=== PATIENT | female | born 1940 | race Caucasian/White ===

== ENCOUNTER 2020-04-22 12:18 | Observation (INO) | payer OTHER, SELFPAY ==
[2020-04-22] VITALS (10 sets, daily range): BP systolic 112–148; BP diastolic 55–95; PULSE 52–64; RESP 14–18; TEMP 35.9–37; O2SAT 95–100; BMI 20.9
--- NOTE | ~2020-04-22 | XR_ITS ---
XR chest 1V portable DATE: 04/23/2020 05:50 INDICATION: Preoperative evaluation. Hypertension. Former smoker. TECHNIQUE: Portable AP chest on 04/23/2020 at 0507 hours COMPARISON: 12/18/2018 PA and lateral chest FINDINGS: Status post sternotomy. Normal heart size. There is aortic calcification and mild tortuosit y. No hilar or mediastinal enlargement. No pulmonary infiltrate or consolidation, pleural effusion or pulmonary vascular congestion or pneumo thorax. Diffuse osteopenia. Degenerative changes of the thoracic and lumbar spine. IMPRESSION: Status post sternotomy No active cardiopulmonary disease Diffuse osteopenia. Reviewed, dictated and finalized at location A. ICAL SECRETARY
--- NOTE | ~2020-04-22 | CT_ITS ---
EXAMINATION: CT brain wo con DATE: 04/22/2020 12:58 INDICATION: Fall. Right frontal head injury TECHNIQUE: Computed tomography (CT) of the head was performed without intravenous contrast. The mA wa s adjusted according to patient size. Iterative reconstruction technique was employed. Exam dose: 12 10.67 mGy-cm total exam DLP. COMPARISON: 05/18/2018 MRI brain/brainstem FINDINGS: There are vertebral, basilar and prominent carotid siphon and supraclinoid internal carotid artery calcifications. There is nonspecific diminished attenuation cerebral white matter, likely due to chronic small vessel ischemic changes. No intracranial mass lesion or hemorrhage, midline shift or mass effect is evident. There is asymmetric diminished attenuation in the watershed area high over the right cerebral convexi ty, likely due to old watershed infarct. No recent cerebrovascular accident is detected, but CT is not sensitive for detection of hyperacute i schemic cerebrovascular accident. Minimal bilateral basal ganglia calcification. No skull fracture or bone destruction of the cranial vault. No subdural or epidural hematoma is detec claudia. The mastoid air cells and included paranasal sinuses are well-developed and aerated. IMPRESSION: Cerebral atherosclerosis and chronic small vessel ischemic change. 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 Reviewed, dictated and finalized at Location A. Reviewed, dictated and finalized at location A. UITING AND SELECTION CONSULTANT
--- NOTE | ~2020-04-22 | XR_ITS ---
XR wrist RT min 3V DATE: 04/22/2020 12:46 INDICATION: Fall, generalized wrist pain TECHNIQUE: Portable three-view examination COMPARISON: None FINDINGS: There is a comminuted distal radial fracture with approximately 50% dorsal displacement, wi th approximately 22 degrees apex anterior angulation and associated dorsal inclination of the distal radial articular surface. Radiocarpal alignment is preserved. 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 Osteopenia. IMPRESSION: Comminuted distal radial fracture with approximately 50% dorsal displacement and 22 degre es apex anterior regulation Reviewed, dictated and finalized at location A. CHANGER IMPRESSION: Comminuted distal radial fracture with approximately 50% dorsal dis placement and 22 degrees apex anterior regulation
--- NOTE | ~2020-04-22 | XR_ITS ---
EXAMINATION: XR surgery orthopedic DATE: 04/23/2020 08:29 INDICATION: External fixation distal right radial fracture TECHNIQUE: Frontal and lateral fluoroscopic images of the wrist were obtained during procedure perfor med by Dr. Headley. Radiologist was not present for the imaging or procedure. The amount of fluoroscopy time used during this procedure was 0.4 minutes. COMPARISON: 04/22/2020 FINDINGS: Interval reduction of the previously seen distal right radial metaphyseal fracture which now appears in near-anatomic alignment with normal degree volar tilt of the distal articular surface. A screw for reported external fixation extends across the proximal metaphyseal region of the second metacarpal. No other fractures identified. Moderate to severe osteoarthritis at the first carpometacarpal joint. IMPRESSION: 1. Near-anatomic alignment post reduction and external fixation of a distal right radial metaphyseal fracture. See procedure note for further detail. Reviewed, dictated and finalized at location A. REHAIRER IMPRESSION: 1. Near-anatomic alignment post reduction and external fixation of a distal rig ht radial metaphyseal fracture. See procedure note for further detail.
--- NOTE | ~2020-04-22 | XR_ITS ---
XR wrist RT 2V DATE: 04/22/2020 14:32 INDICATION: Patient fell today. Generalized wrist pain. Distal radial fracture. TECHNIQUE: Portable AP and lateral views following reduction COMPARISON: 04/22/2020 right wrist FINDINGS: There is persistent approximately 7.5 mm dorsal displacement at the distal radial fracture and persistent approximately 20 degrees apex anterior angulation. IMPRESSION: No significant change in position or alignment of the distal radial metaphyseal fracture Reviewed, dictated and finalized at location A. ROAD COOK
[2020-04-22] MEDS: MORPHINE SULFATE (*CRX) 2 MG/ML INJ IV PUSH (13:40)
[2020-04-22 13:53] LABS: Add Urine Microscopic? NO; Appearance Urine Clear (Clear); Bilirubin Urine Negative (Negative); Blood Urine Negative (Negative); Color Urine Yellow (Yellow); Glucose Urine UA Negative (Negative); Ketones Urine Negative (Negative); Leukocyte Esterase Ur Negative LEU/UL (Negative); Mucus Urine Rare /lpf; Nitrate Urine Negative (Negative); Protein Urine Negative (Negative); Specific Grav Ur 1.015 (1.001-1.035); Urobilinogen Urine Negative mg/dL (<2.0); WBC Urine 0-3 /hpf
--- NOTE | 2020-04-22 14:01 | PC.NURSE ---
Dr. Hawthorne at bedside to reduce fracture, and place arm splint.
--- NOTE | 2020-04-22 14:15 | ED.FALL ---
HPI - Fall General Chief Complaint: Fall Stated Complaint: fall History of Present Illness HPI Narrative: Patient is an 79-year-old female who presents ER status post fall. Patient has dementia and was found down. She has a laceration to her right eyebrow and deformity to her right wrist. She takes a baby aspirin no other blood thinners. She has no complaints at this time. Related Data Home Medications Medication Instructions Recorded Confirmed levothyroxine 50 mcg tablet 50 mcg PO DAILY 03/24/19 12/16/19 aspirin 81 mg tablet,delayed 81 mg PO DAILY 06/27/19 12/16/19 release buspirone 5 mg tablet 5 mg PO BID 06/27/19 12/16/19 donepezil 5 mg tablet 5 mg PO DAILY tablet 06/27/19 12/16/19 losartan 25 mg tablet 25 mg PO DAILY 06/27/19 12/16/19 quetiapine 25 mg tablet 12.5 mg PO DAILY tablet 06/27/19 12/16/19 Allergies Allergy/AdvReac Type Severity Reaction Status Date / Time No Known Allergies Allergy Verified 04/22/20 12:47 Review of Systems Review of Systems: ROS unobtainable: Yes unobtainable due to medical condition PMFSH Past Medical History Medical History Acquired hypothyroidism Central retinal vein occlusion with macular edema Dementia Dementia Essential hypertension HTN (hypertension) Hyperlipidemia Memory loss Surgical History Surgical History History of coronary artery bypass graft Family History Family History Sibling Family history of suicide Family history of malignant neoplasm Patient's sister is Father Malignant neoplasm of prostate Family history of malignant neoplasm Patient's father is Mother Patient's mother is Social History Social History Smoking status: Former smoker Alcohol intake: never Gender identity (if verbalized by the patient): Female Exam Narrative: Exam Narrative: GENERAL: Well-appearing, well-nourished, and in no acute distress. HEAD: Normocephalic, 2.5 cm laceration to the lateral aspect of the right eyebrow.. EYES: PERRL and EOMI. NECK: No midline tenderness cervical spine. Full range of motion. CHEST: Clear to auscultation. No respiratory distress. HEART: Regular rate and rhythm. Normal peripheral pulses. EXTREMITIES: Focused exam of the right upper extremity reveals deformity to the right wrist with tenderness. Radial pulse and sensation intact. NEURO: Alert and oriented x2. PSYCH: Normal mood and affect. Course Course Emergency Course: Discussed with Dr. Headley, admit to hospitalist, NPO at midnight. Vital Signs Vital signs: Vital Signs Temperature 97.0 F L 04/22/20 12:28 Pulse Rate 57 L 04/22/20 12:28 Respiratory Rate 16 04/22/20 12:28 Blood Pressure 120/64 04/22/20 12:28 Pulse Oximetry 99 04/22/20 12:28 Temperature 97.0 F L 04/22/20 12:28 Pulse Rate 62 04/22/20 15:15 Respiratory Rate 16 04/22/20 15:15 Blood Pressure 116/64 04/22/20 15:15 Pulse Oximetry 100 04/22/20 15:15 Procedures Laceration Laceration 1: Date: 04/22/20 Time: 14:45 Site: face Side (If applicable): right Size (cm): 2.5 Description: linear and clean Depth: simple, single layer Local Anesthetic: lidocaine 1% and with epi Amount of anesthesia used (mL): 2 Pre-repair: irrigated and minor debridement ====== Skin Level ====== Skin layer closed with: prolene Size (cm): 5-0 Number of sutures: 4 Technique: simple, interrupted ====== Subcutaneous Layer ====== ====== Muscle Layer ====== ====== Tendon Layer ====== Orthopedic Fracture Reduction Fracture #1: Fracture Reduction date: 04/22/20 Fracture Reduction time: 14:00 Time Out P
[2020-04-22] MEDS: TETANUS,DIPHTHERIA,AC PERTUSSIS ADULT (0.5 ML) BOOSTRIX IM (14:38)
--- NOTE | 2020-04-22 14:50 | PC.NURSE ---
Dr. Hawthorne at bedside for repair of facial laceration.
--- NOTE | 2020-04-22 15:49 | PC.NURSE ---
Pt ambulatory to bathroom with assist x1. Gait steady with ambulation.
--- NOTE | 2020-04-22 17:03 | WPDANESEPP ---
Anes - Eval Pre Procedure Procedure: ORIF distal radius fracture Date/Time: 04/22/20 17:03 Surgeon: Kayode Preop Diagnosis: Distal radius fracture Pre Op Diagnosis: distal radius fracture Patient Data Age: 79 Gender: F Height: 5 ft 2 in Weight: 54.5 kg Last Vital Signs Temp 97.0 F L 04/22/20 12:28 Pulse 62 04/22/20 15:15 Resp 16 04/22/20 15:15 BP 116/64 04/22/20 15:15 Pulse Ox 100 04/22/20 15:15 Allergies Allergy/AdvReac Type Severity Reaction Status Date / Time No Known Allergies Allergy Verified 04/22/20 12:47 Home Medications Medication Instructions Recorded Confirmed Type levothyroxine 50 mcg tablet 50 mcg PO DAILY 03/24/19 12/16/19 History hydrochlorothiazide 12.5 mg tablet 12.5 mg PO DAILY #90 tablet 05/15/19 12/16/19 Rx aspirin 81 mg tablet,delayed 81 mg PO DAILY 06/27/19 12/16/19 History release buspirone 5 mg tablet 5 mg PO BID 06/27/19 12/16/19 History donepezil 5 mg tablet 5 mg PO DAILY tablet 06/27/19 12/16/19 History losartan 25 mg tablet 25 mg PO DAILY 06/27/19 12/16/19 History quetiapine 25 mg tablet 12.5 mg PO DAILY tablet 06/27/19 12/16/19 History atorvastatin 20 mg tablet 20 mg PO DAILY #90 tablet 08/11/19 12/16/19 Rx metoprolol tartrate 25 mg tablet 12.5 mg PO BID #90 tablet 04/07/20 Rx Laboratory Tests 04/22/20 13:13 Urine Color Yellow (Yellow) Urine Appearance Clear (Clear) Urine pH 7.0 (5.0-9.0) Ur Specific [place] 1.015 (1.001-1.035) Urine Protein Negative mg/dL mg/dL (Negative) Urine Glucose (UA) Negative mg/dL mg/dL (Negative) Urine Ketones Negative mg/dL mg/dL (Negative) Ur Blood (Man) Negative (Negative) Urine Nitrate Negative (Negative) Urine Bilirubin Negative (Negative) Urine Urobilinogen Negative mg/dL mg/dL (<2.0) Leukocyte Esterase Rfl Negative JAMES/UL JAMES/UL (Negative) Urine RBC 6-10 /hpf H /hpf (0-2) Urine WBC 0-3 /hpf /hpf Urine Mucus Rare /lpf /lpf Patient hx anesthesia problems: none Family hx anesthesia problems: none PMFSH Past Medical History Medical History Acquired hypothyroidism Central retinal vein occlusion with macular edema Dementia Dementia Essential hypertension HTN (hypertension) Hyperlipidemia Memory loss Surgical History Surgical History History of coronary artery bypass graft Family History Family History Sibling Family history of suicide Family history of malignant neoplasm Patient's sister is Father Malignant neoplasm of prostate Family history of malignant neoplasm Patient's father is Mother Patient's mother is Social History Social History Smoking status: Former smoker Alcohol intake: never Gender identity (if verbalized by the patient): Female Exam Day of Procedure 04/22/20 17:03 Patient weight: normal Neurological: confused
--- NOTE | 2020-04-22 17:06 | ECG_ITS ---
Measurements Intervals [place] Rate: 61 P: 33 OR: 162 QRS: -5 QRSD: 89 T: 44 QT: 459 QTc: 464 Interpretive Statements SINUS RHYTHM DELAYED PRECORDIAL R/S TRANSITION CONSIDER INFERIOR INFARCT, AGE INDETERMINATE ABNORMAL ECG Electronically Signed On 04-23-2020 7:59:30 LEAD LEVEL DESIGNER by Reggie Wise D.O.
--- NOTE | 2020-04-22 18:08 | PC.NURSE ---
This patient, Mya Mendez, was admitted to Medical Room 342-01. Patient/family oriented to hospital policies and general routines including ID bracelet, bed and alarms, visiting hours, pain management, procedures, bathroom and other care routines, personal items, smoking policy, room service/diet, and visiting hours. Information on how to activate the Rapid Response Team has been discussed. Patient/Family are encouraged to report perceived risks to care and to ask questions if they do not understand what they are told or what they should do.
--- NOTE | 2020-04-22 20:00 | PM.IMHP ---
H&P: HPI History of Present Illness Date/Time: 04/22/20 20:00 Chief complaint: Unwitnessed fall. Narrative: Mya Mendez is an 79-year-old female with dementia, hypertension, and hypothyroidism who presented to the emergency department earlier today via EMS from [facility] for evaluation after an unwitnessed fall. The patient tells me that she was in a hurry this morning and ran to the bathroom where she unfortunately tripped and fell out onto her outstretched right hand and in turn she hit her right forehead on the floor. She had a laceration of the right eyebrow which was repaired in the emergency department, and x-rays showing a displaced right distal radial fracture for which she is being admitted. She does not believe that she had any loss of consciousness in the fall and does not remember feeling lightheaded or dizzy prior to. She also denies recent illness, chest pain, pleuritic pain, palpitations, and shortness of breath. No paresthesias, skin color, or temperature changes distal to the fracture site. Review of Systems Review of Systems: Narrative: Twelve systems were reviewed with pertinent positives and negatives as per HPI. She denies fever, chills, and sweats. No sinus congestion, rhinorrhea, otalgia, or odynophagia. She denies headache and neck ache. No diplopia, vertigo, or dizziness. She denies chest pain, pleuritic pain, palpitations, cough, and shortness of breath. No nausea, vomiting, diarrhea, or dysuria. Except as documented HPI, all other systems were reviewed and are negative. [facility] Past Medical History Medical History (Updated 04/22/20 @ 21:41 by Edel Nunez PA-C) Acquired hypothyroidism Anxiety Central retinal vein occlusion with macular edema Coronary artery disease Coronary artery disease Dementia Essential hypertension Hyperlipidemia Surgical History Surgical History (Updated 04/22/20 @ 21:37 by Edel Nunez PA-C) History of appendectomy History of coronary artery bypass graft (~2009) History of laparoscopy With adhesiolysis. History of tonsillectomy Family History Family History Sibling Family history of suicide Family history of malignant neoplasm Patient's sister is Father Malignant neoplasm of prostate Family history of malignant neoplasm Patient's father is Mother Patient's mother is Social History Social History (Updated 04/22/20 @ 21:38 by Edel Nunez PA-C) Social History: Surrogate decision maker: Tiny Salas (child) or Dar Mendez (spouse). Code status: Full code. Smoking status: Former smoker Alcohol intake: former Substance use type: does not use Additional living arrangements comments: Resident at [facility]. Occupation/Education: retired Gender identity (if verbalized by the patient): Female Spiritual care concerns: No Meds Home Medications and Allergies Home Medications Medication Instructions Recorded Confirmed Type levothyroxine 50 mcg tablet 50 mcg PO DAILY 03/24/19 04/22/20 History hydrochlorothiazide 12.5 mg tablet 12.5 mg PO DAILY #90 tablet 05/15/19 04/22/20 Rx aspirin 81 mg tablet,delayed 81 mg PO DAILY 06/27/19 04/22/20 History release buspirone 5 mg tablet 5 mg PO BID 06/27/19 04/22/20 History donepezil 5 mg tablet 5 mg PO DAILY tablet 06/27/19 04/22/20 History losartan 25 mg tablet 25 mg PO DAILY 06/27/19 04/22/20 History quetiapine 25 mg tablet 12.5 mg PO DAILY tablet 06/27/19 04/22/20 History atorvastatin 20 mg tablet 20 mg PO DAILY #90 tablet 08/11/19 04/22/20 Rx metoprolol tartrate 25 mg tablet 12.5 mg PO BID #90 tablet 04/07/20 04/22/20 Rx escitalopram oxalate 5 mg PO DAILY 04/22/20 04/22/20 History Allergies Allergy/AdvReac Type Severity Reaction Status Date / Time No Known Allergies Allergy Verified 04/22/20 12:47 Vi
[2020-04-22] MEDS: busPIRone HCL 5 MG TABLET PO (23:10)
[2020-04-22] MEDS: ATORVASTATIN 20 MG TABLET PO (23:10)
[2020-04-22] MEDS: QUEtiapine FUMARATE 12.5 MG TABLET PO (23:11)
[2020-04-22] MEDS: METOPROLOL TARTRATE 12.5 MG TABLET PO (23:17)
[2020-04-23] VITALS (15 sets, daily range): BP systolic 97–155; BP diastolic 40–63; PULSE 55–68; RESP 14–20; TEMP 35.3–36.1; O2SAT 94–100
[2020-04-23] MEDS: LEVOTHYROXINE SODIUM 50 MCG TABLET PO (05:33)
[2020-04-23 06:07] LABS: Hematocrit 41.7 % (37.0-47.0); Hemoglobin 14.1 g/dL (12.0-15.0); Mean Corpuscular HGB Conc 33.8 g/dl (32-36); Mean Corpuscular Hemoglobin 32.2 pg (26-34); Mean Corpuscular Volume 95.2 fl (80-100); Mean Platelet Volume 10.7 fl (7.4-10.4); Platelet Count Result 204 k/mm3 (150-375); Red Blood Count 4.38 M/mm3 (4.2-5.4); White Blood Count 7.8 K/mm3 (4.5-10.0)
[2020-04-23 06:20] LABS: Alanine Aminotransferase 19 U/L (4-35); Albumin Level 3.4 g/dL (3.5-5.1); Alkaline Phosphatase 72 U/L (38-126); Anion Gap 7 mmol/L (8-16); Aspartate Amino Transferase 32 U/L (14-36); Bilirubin,Total 0.8 mg/dL (0.2-1.3); Blood Urea Nitrogen 20 mg/dL (7-17); Carbon Dioxide 31 mmol/L (22-30); Chloride 98 mmol/L (98-107); Estimated CRCL calculation 35 ml/min; Estimated Glomerular Filt Rate 60; Glucose 99 mg/dL (65-105); Magnesium 1.9 mg/dL (1.6-2.3); Potassium 3.8 mmol/L (3.4-5.0); Sodium 136 mmol/L (137-145)
--- NOTE | 2020-04-23 07:09 | WPDANESPNB ---
Anes - Peripheral Nerve Block Date/Time: 04/23/20 07:09 I have discussed with the patient/family/POA the placement of a peripheral nerve block for post-operative pain management, including associated risks, benefits, complications, and side effects. Alternative methods of post-operative analgesia were detailed. Questions were solicited and answers provided to the satisfaction of the patient/family/POA. Time-Out: A pre-procedural Time-Out was completed immediately before starting the procedure and confirmed: Patient Identification, Site, Procedure, Patient Position and the Availability of Requisite Equipment. Clinical Indications: Acute post-operative pain management requested by the operative surgeon. Nerve Block Insertion Note Anes-nerve block: supraclavicular right Patient position: supine Skin prep: chlorhexidine Needle: 22 gauge, stimulating, insulated echogenic needle. Needle length: 50 mm Technique: ultrasound Injectate: bupivacaine 0.5% with epi 5 mcg/ml (30cc) Observations: tolerated well Complications: none Procedure start time:: 727 Procedure end time:: 730
--- NOTE | 2020-04-23 07:10 | PM.CNOR ---
Assessment and Plan Assessment and plan (1) Displaced fracture of distal end of right radius: Code(s): S52.501A - Unspecified fracture of the lower end of right radius, initial encounter for closed fracture Status: Acute Assessment and Plan: 79-year-old female with displaced comminuted right distal radius fracture. Plan will be to go ahead with reduction and stabilization today using an external fixator device. I explained all of this to the patient who seems to understand quite well. I also reviewed with her daughter Tiny what the situation is and the plan for today as well as moving forward.Risks and potential complications were discussed in detail and questions answered. Thank you for the consultation. History of Present Illness HPI Consult date: 04/23/20 Consult reason: fracture Chief complaint: Unwitnessed fall. Narrative: 79-year-old right-handed female who fell at home yesterday suffering a right distal radius fracture. A reduction was attempted in the emergency room but was unsuccessful. Plan on proceeding with reduction and stabilization with an external fixation device today. No other injuries with this occurrence. Patient does have a history of dementia but is aware of what happened to her yesterday and understands what we are planning to do today. Review of Systems Constitutional: Constitutional: Reports no additional constitutional complaints Eyes: Eyes: Reports no additional eye complaints ENT: Reports system reviewed and no additional complaints, except as documented Cardiovascular: Cardiovascular: Denies chest pain at rest and Denies dyspnea Respiratory: Respiratory: Reports no additional respiratory complaints and Denies dyspnea Gastrointestinal: Gastrointestinal: Reports no additional gastrointestinal complaints Musculoskeletal: Musculoskeletal: Reports as per HPI Neurologic: Reports as per HPI Endocrine: Endocrine: Denies excessive sweating and Denies fatigue [facility] Past Medical History Medical History Acquired hypothyroidism Anxiety Central retinal vein occlusion with macular edema Coronary artery disease Coronary artery disease Dementia Essential hypertension Hyperlipidemia Surgical History Surgical History History of appendectomy History of coronary artery bypass graft (~2009) History of laparoscopy With adhesiolysis. History of tonsillectomy Family History Family History Sibling Family history of suicide Family history of malignant neoplasm Patient's sister is Father Malignant neoplasm of prostate Family history of malignant neoplasm Patient's father is Mother Patient's mother is Social History Social History Social History: Surrogate decision maker: Tiny Salas (child) or Dar Mendez (spouse). Code status: Full code. Smoking status: Former smoker Alcohol intake: former Substance use type: does not use Additional living arrangements comments: Resident at [facility]. Occupation/Education: retired Gender identity (if verbalized by the patient): Female Spiritual care concerns: No Meds Home Medications and Allergies Home Medications Medication Instructions Recorded Confirmed Type levothyroxine 50 mcg tablet 50 mcg PO DAILY 03/24/19 04/22/20 History hydrochlorothiazide 12.5 mg tablet 12.5 mg PO DAILY #90 tablet 05/15/19 04/22/20 Rx aspirin 81 mg tablet,delayed 81 mg PO DAILY 06/27/19 04/22/20 History release buspirone 5 mg tablet 5 mg PO BID 06/27/19 04/22/20 History donepezil 5 mg tablet 5 mg PO DAILY tablet 06/27/19 04/22/20 History losartan 25 mg tablet 25 mg PO DAILY 06/27/19 04/22/20 History quetiapine 25 mg tablet 12.5 mg PO
--- NOTE | 2020-04-23 07:21 | SUR.OPER ---
Called pharmacy and spoke with Amaris to verify 2gram dose was safe due to weight and was told yes dose is safe.
[2020-04-23] MEDS: ceFAZolin 2 GM/D5W 50 ML 2 GM/50 ML BAG IVPB (07:35)
[2020-04-23] MEDS: LACTATED RINGERS 1,000 ML 30 ML IV CONT (08:32)
--- NOTE | 2020-04-23 09:00 | P.OP_ITS ---
Procedure Note - Detailed Date of procedure: 04/23/20 Pre-op diagnosis: Unwitnessed fall. Displaced comminuted right distal radius fracture Post-op diagnosis: same ( displaced comminuted right distal radius fracture) Procedure performed: right distal radius fracture reduction and stabilization with external fixator device Description of procedure: The patient was identified and proper site identified. In the preoperative holding area, the anesthesia team performed a right upper extremity block. She was then taken to the operating room and transferred to the OR table placing her supine taking care to pad her torso and extremities. After general anesthetic induction and intubation, a nonsterile tourniquet was placed high in the right arm but was not used. The right upper extremity was prepped and draped in usual sterile fashion. Under fluoroscopic visualization the fracture was examined and manipulated and it was noted that a nice reduction was going to be able to be obtained. A short incision was made over the dorsal radial aspect of the distal ulnar shaft. Subcutaneous tissue was bluntly dissected protecting neurovascular structures. Using the targeting device, the two radial pins were inserted under fluoroscopic visualization. The wound was irrigated and skin edges reapproximated with three 0 nylon suture. The same procedure was done over the midportion of the second metacarpal shaft using the metacarpal pins and this was also done with fluoroscopic assistance. The fixator frame was applied and while holding the distal radius in a reduced position, the fixator was tightened. This gave a very nice reduction of length, inclination and tilt of the distal radius fracture without undue distraction at the fracture site. Pin sites were dressed sterilely and then a well-padded sterile dressing was applied to the right upper extremity. The patient tolerated the procedure well. She was awakened, extubated and taken recovery area in stable condition. There were no known intraoperative complications. Estimated blood loss 5 mL. She received perioperative antibiotics. Anesthesia: GETA Surgeon: Harsh Headley MD Flight Engineer Instructor: Kwabena Barakat Estimated blood loss (mL): 5 Drains: No Packing: No Pathology: none sent Complications: No immediate complications Condition: stable Disposition: PACU
--- NOTE | 2020-04-23 09:38 | PC.NURSE ---
Returned from OR
[2020-04-23] MEDS: SODIUM CHLORIDE 0.9% IV 1,000 ML 100 ML IV CONT (09:53)
[2020-04-23] MEDS: ESCITALOPRAM OXALATE 5 MG TABLET PO (09:56)
[2020-04-23] MEDS: METOPROLOL TARTRATE 12.5 MG TABLET PO ×2 (09:56→20:36)
[2020-04-23] MEDS: DOCUSATE SODIUM 100 MG CAPSULE PO ×2 (09:56→17:03)
[2020-04-23] MEDS: busPIRone HCL 5 MG TABLET PO ×2 (09:56→20:36)
[2020-04-23] MEDS: hydroCHLOROthiazide 12.5 MG CAPSULE PO (09:56)
[2020-04-23] MEDS: LOSARTAN POTASSIUM 25 MG TABLET PO (09:56)
[2020-04-23] MEDS: ASPIRIN 81 MG ENTERIC TABLET PO (10:47)
[2020-04-23] MEDS: ACETAMINOPHEN 325 MG TABLET 650 MG PO ×2 (12:29→17:35)
--- NOTE | 2020-04-23 16:09 | PM.IMPN ---
Progress Note: A&P Assessment and Plan (1) Displaced fracture of distal end of right radius: Code(s): S52.501A - Unspecified fracture of the lower end of right radius, initial encounter for closed fracture Status: Acute Assessment and Plan: Patient fell on an outstretched hand -she underwent a right distal radius fracture reduction and stabilization with external fixator device 04/23/20 with no immediate complications -is still under nerve block and pain is under control -PT and OT have been ordered -likely discharge tomorrow -81 mg of aspirin has been ordered (home medication). Before discharge I will speak with Dr. Headley about his preferred method of anticoagulation. SCDs are in place. (2) Facial laceration: Code(s): S01.81XA - Laceration without foreign body of other part of head, initial encounter Status: Acute Assessment and Plan: Well approximated without bleeding or dehiscence -CTA of the head shows no acute pathology -no neurological deficits other than her baseline confusion of dementia -monitor neuro status (3) Dementia: Code(s): F03.90 - Unspecified dementia without behavioral disturbance Status: Acute Assessment and Plan: Chronic -continue Aricept (4) Essential hypertension: Code(s): I10 - Essential (primary) hypertension Status: Acute Assessment and Plan: Last blood pressure 137/63 -continue metoprolol (5) Acquired hypothyroidism: Code(s): E03.9 - Hypothyroidism, unspecified Status: Acute Assessment and Plan: Continue levothyroxine Time Spent With Patient Time with patient: 25 - 35 minutes Subjective Date/time seen: 04/23/20 16:09 Interval history: Pt is a 79-year-old female here for right wrist fracture. Patient was seen today and answers all questions but is confused at baseline. Patient states she is in no pain and would like to go home. She is tired of sitting in bed could she is usually very active. Pt denies nausea, vomiting, fevers, chills, constipation, diarrhea, chest pain, sob, or abdominal pain. Review of Systems Review of Systems: All systems reviewed & are unremarkable except as noted in HPI and below Exam Narrative: Exam Narrative: General: Well developed well nourished patient in NAD HEENT: normocephalic Neck: supple Neuro: Alert and oriented to herself and birthday only. Cranial nerves 2-12 intact. Equal strength the lower extremities 5/5. Normal capillary refill and sensation to the right extremity CV:RRR Resp:CTA Abd: Soft, non distended. No pain to palpation. Positive bowel sounds Extremities: Right wrist in a soft cast with normal capillary refill and some sensation to the area. She has a nerve block Objective Data Vital Signs Vital Signs: Vital Signs - 24 hr 04/22/20 17:50 04/22/20 18:08 04/22/20 18:59 Temperature 96.7 F L 96.7 F L Pulse Rate 63 64 64 Respiratory Rate 18 18 Blood Pressure 112/78 130/95 H 130/95 H Pulse Oximetry 99 97 97 04/22/20 20:00 04/22/20 23:17 04/23/20 00:00 Temperature 98.6 F 97 F L Pulse Rate 58 L 62 58 L Respiratory Rate 14 14 Blood Pressure 148/55 H 141/59 H Pulse Oximetry 95 97 04/23/20 03:49 04/23/20 08:32 04/23/20 08:45 Temperature 97 F L 97.0 F L Pulse Rate 55 L 60 63 Respiratory Rate 16 15 16 Blood Pressure 147/55 H 97/40 L 102/46 L Pulse Oximetry 96 99 99 04/23/20 09:00 04/23/20 09:15 04/23/20 09:29 Temperature Pulse Rate 65 60 67 Respiratory Rate 20 20 18 Blood Pressure 118/47 L 115/47 L 115/50 L Pulse Oximetry 98 95 95 04/23/20 09:40 04/23/20 09:55 04/23/20 09:56 Temperature 95.6 F L 96.2 F L Pulse Rate 58 L 65 61 Respiratory Rate 16 16 Blood Pressure 131/50 L 155/51 H Pulse Oximetry 97 100 04/23/20 10:25 04/23/20 12:00 Temperature 96.5 F L 96.4 F L Pulse Rate 61 66 Respiratory Rate 16 16 Blood Pressure 129/56 L 137/63 Pulse Oximetry 95 94 Intake/
[2020-04-23] MEDS: ATORVASTATIN 20 MG TABLET PO (20:36)
[2020-04-23] MEDS: QUEtiapine FUMARATE 12.5 MG TABLET PO (20:37)
[2020-04-23] MEDS: DONEPEZIL HCL 5 MG TABLET PO (20:37)
[2020-04-24] MEDS: ACETAMINOPHEN 325 MG TABLET 650 MG PO ×3 (00:31→12:11)
[2020-04-24 02:00] VITALS: BP 125/54; PULSE 65; RESP 14; TEMP 36; O2SAT 98
[2020-04-24] MEDS: LEVOTHYROXINE SODIUM 50 MCG TABLET PO (05:58)
[2020-04-24 06:00] VITALS: BP 133/67; PULSE 75; RESP 15; TEMP 36; O2SAT 97
[2020-04-24 06:32] LABS: Hematocrit 37.9 % (37.0-47.0)
[2020-04-24 06:57] LABS: Anion Gap 3 mmol/L (8-16); Blood Urea Nitrogen 16 mg/dL (7-17); Carbon Dioxide 34 mmol/L (22-30); Chloride 99 mmol/L (98-107); Estimated CRCL calculation 35 ml/min; Estimated Glomerular Filt Rate 60; Glucose 89 mg/dL (65-105); Potassium 3.2 mmol/L (3.4-5.0); Sodium 136 mmol/L (137-145)
[2020-04-24 08:00] VITALS: PULSE 75; RESP 15; O2SAT 97
[2020-04-24 08:14] VITALS: PULSE 75
[2020-04-24] MEDS: METOPROLOL TARTRATE 12.5 MG TABLET PO (08:14)
[2020-04-24] MEDS: busPIRone HCL 5 MG TABLET PO (08:14)
[2020-04-24] MEDS: DOCUSATE SODIUM 100 MG CAPSULE PO (08:14)
[2020-04-24] MEDS: LOSARTAN POTASSIUM 25 MG TABLET PO (08:14)
[2020-04-24] MEDS: ASPIRIN 81 MG ENTERIC TABLET PO (08:14)
[2020-04-24] MEDS: hydroCHLOROthiazide 12.5 MG CAPSULE PO (08:14)
[2020-04-24] MEDS: ESCITALOPRAM OXALATE 5 MG TABLET PO (08:14)
[2020-04-24] MEDS: POTASSIUM CHLORIDE 20 MEQ TABLET 40 MEQ PO (09:32)
--- NOTE | 2020-04-24 11:26 | PM.PNORT ---
Progress Note: A&P Assessment and Plan (1) Displaced fracture of distal end of right radius: Code(s): S52.501A - Unspecified fracture of the lower end of right radius, initial encounter for closed fracture Status: Acute Assessment and Plan: 79-year-old female postop day one right distal radius external fixator placement. From my standpoint, no further intervention will be required for the next two weeks at which point the sutures will come out. No use of the right hand other than to move her digits. Certainly no lifting with the right upper extremity or repositioning herself. We reviewed this. Following Subjective Subjective Date/Time Seen: 04/24/20 11:26 Post Op day: 1 Principal diagnosis: Status post external fixator placement right distal radius fracture Interval history: 79-year-old female postop day one ex fix right distal radius fracture in overall having no issues with the right arm. Review of Systems Review of Systems: All systems reviewed & are unremarkable except as noted in HPI and below Exam Const: General: cooperative Extrem: Other: Right upper extremity dressing is clean and dry. Digits are exposed. Intact sensation and normal digital motion noted with good capillary refill appreciated. Objective Data Vital Signs Vital Signs: Vital Signs - 24 hr 04/23/20 12:00 04/23/20 16:00 04/23/20 20:30 Temperature 96.4 F L 96.3 F L 96.8 F L Pulse Rate 66 68 63 Respiratory Rate 16 16 16 Blood Pressure 137/63 149/62 H 132/51 L Pulse Oximetry 94 99 96 04/23/20 20:36 04/24/20 02:00 04/24/20 06:00 Temperature 96.8 F L 96.8 F L Pulse Rate 65 65 75 Respiratory Rate 14 15 Blood Pressure 125/54 L 133/67 Pulse Oximetry 98 97 04/24/20 08:00 04/24/20 08:14 Temperature Pulse Rate 75 75 Respiratory Rate 15 Blood Pressure Pulse Oximetry 97 Intake/Output Intake/Output: Intake & Output 04/21/20 04/22/20 04/23/20 04/24/20 23:59 23:59 23:59 23:59 Intake Total 240 / 240 1646 / 1646 290 / 290 Output Total 190 / 190 400 / 400 100 / 100 Balance 50 / 50 1246 / 1246 190 / 190 Meds/Results Medications: Active Medications Generic Name Dose Route Start Last Admin Trade Name Aldair PRN Reason Stop Dose Admin Acetaminophen 650 mg 04/23/20 12:00 04/24/20 05:58 Acetaminophen 325 Mg Tablet PO 650 mg Q6HR TONEY Administration Aspirin 81 mg 04/23/20 09:33 04/24/20 08:14 Aspirin 81 Mg Enteric Tablet PO 81 mg DAILY TONEY Administration Atorvastatin Calcium 20 mg 04/22/20 22:00 04/23/20 20:36 Atorvastatin 20 Mg Tablet PO 20 mg HS TONEY Administration Buspirone HCl 5 mg 04/22/20 22:00 04/24/20 08:14 Buspirone Hcl 5 Mg Tablet PO 5 mg Q12HR TONEY Administration Docusate Sodium 100 mg 04/23/20 09:33 04/24/20 08:14 Docusate Sodium 100 Mg Capsule PO 100 mg BID TONEY Administration Donepezil HCl 5 mg 04/23/20 21:00 04/23/20 20:37 Donepezil Hcl 5 Mg Tablet PO 5 mg HS TONEY Administration Escitalopram Oxalate 5 mg 04/23/20 09:00 04/24/20 08:14 Escitalopram Oxalate 5 Mg Tablet PO 5 mg DAILY TONEY Administration Hydrochlorothiazide 12.5 mg 04/23/20 09:00 04/24/20 08:14 Hydrochlorothiazide 12.5 Mg Capsule PO 12.5 mg DAILY TONEY Administration Levothyroxine Sodium 50 mcg 04/23/20 06:30 04/24/20 05:58 Levothyroxine Sodium 50 Mcg Tablet PO 50 mcg DAILY@0630 TONEY Administration Losartan Potassium 25 mg 04/23/20 09:00 04/24/20 08:14 Losartan Potassium 25 Mg Tablet PO 25 mg DAILY TONEY Administration Magnesium Hydroxide 30 ml 04/23/20 09:33 Magnesium Hydroxide Susp 30 Ml Udc PO BID PRN Constipation Metoprolol Tartrate 12.5 mg 04/22/20 21:55 04/24/20 08:14 Metoprolol Tartrate 12.5 Mg Tablet PO 12.5 mg Q12HR TONEY Administration Quetiapine Fumarate 12.5 mg 04/22/20 22:00 04/23/20 20:37 Quetiapine Fumarate 12.5 Mg Tablet PO 12.5 mg HS TONEY Administration Radiolo
--- NOTE | 2020-04-24 12:22 | PM.DS ---
DS: Admitting Diagnosis Admitting Diagnosis Admitting Diagnosis: Distal radius fracture DS: Discharge Diagnosis Discharge Diagnosis (1) Displaced fracture of distal end of right radius: Code(s): S52.501A - Unspecified fracture of the lower end of right radius, initial encounter for closed fracture Status: Acute Assessment and Plan: Patient fell on an outstretched hand -she underwent a right distal radius fracture reduction and stabilization with external fixator device 04/23/20 with no immediate complications -pain is well controlled at discharge -no additional anticoagulation needed (2) Facial laceration: Code(s): S01.81XA - Laceration without foreign body of other part of head, initial encounter Status: Acute Assessment and Plan: Well approximated without bleeding or dehiscence -CTA of the head shows no acute pathology -no neurological deficits other than her baseline confusion of dementia -I have asked the nursing facility to remove the sutures in 5 days (3) Dementia: Code(s): F03.90 - Unspecified dementia without behavioral disturbance Status: Acute Assessment and Plan: Chronic -continue Aricept (4) Essential hypertension: Code(s): I10 - Essential (primary) hypertension Status: Acute Assessment and Plan: Last blood pressure 133/67 -continue metoprolol (5) Acquired hypothyroidism: Code(s): E03.9 - Hypothyroidism, unspecified Status: Acute Assessment and Plan: Continue levothyroxine DS: Summary Hospital Course Reason for hospitalization: Right wrist fracture Hospital Course: Patient is an 79-year-old female who presented emergency room after a fall at the [facility] facility found to have a displaced fracture of the distal end of the right radius. She also had a laceration to the right eyebrow which was sutured. CT of the brain does not show any acute abnormalities and the neuro exam was normal. The patient was admitted to hospitalist service and underwent a reduction and stabilization with external fixation in the OR 04/23/20. Patient had no complications. She was confused throughout her stay but apparently is at baseline and she is in memory care. Her pain was well controlled the day of discharge and she was neurologically intact. I spoke with Dr. headley about the plan of care. Patient was educated about the worrisome signs and symptoms to come back to emergency room for and was discharged in stable condition Status at Discharge Functional status at discharge: independent ambulation Overall status at discharge: patient is progressing back to baseline Time Spent with Patient Time attestation: Total time spent providing and/or coordinating discharge services:34 min Exam Narrative: Exam Narrative: General: Well developed well nourished patient in NAD HEENT: normocephalic Neck: supple Neuro: Alert and oriented to herself and birthday only. Cranial nerves 2-12 intact. Equal strength the lower extremities 5/5. Normal capillary refill and sensation to the right extremity CV:RRR Resp:CTA Abd: Soft, non distended. No pain to palpation. Positive bowel sounds Extremities: Right wrist in a soft cast with normal capillary refill and some sensation to the area. She has a nerve block DS: Data Data Completed and Pending Labs on day of discharge: Labs from last 24 hours 04/24/20 04/24/20 04/24/20 05:22 05:22 01:02 Hgb 13.0 Hct 37.9 Sodium 136 L Potassium 3.2 L Chloride 99 Carbon Dioxide 34 H Anion Gap 3 L BUN 16 Creatinine 0.90 Estim Creat Clear Calc 35 Estimated GFR 60 Glucose 89 Calcium 9.0 SARS-CoV-2 RNA (RT-PCR) Pending Discharge Plan Discharge Attending physician on discharge: Berry Durant Consulting providers: Harsh Headley Discharging Clinician: Chaya Syed Patient Disposition: [place] [facility]
[2020-04-24 13:43] LABS: SARS-CoV-2 RNA PCR Negative
== END 2020-04-24 15:25 ==
LOC: ANHED 15:53 → ANH3MED 17:06
PROVIDERS: Orthopaedic Surgery; Physician Assistant; Admitting Provider Family Medicine; Emergency Provider Emergency Medicine; PCP Nurse Practitioner; Visit Provider Internal Medicine
PROC: (CPT 25605; principal; 2020-04-23 07:30)
DX: S52.501A Unspecified fracture of the lower end of right radius, initial encounter for closed fracture (principal); S01.111A Laceration without foreign body of right eyelid and periocular area, initial encounter; F03.90 Unspecified dementia, unspecified severity, without behavioral disturbance, psychotic disturbance, mood disturbance, and anxiety; I10 Essential (primary) hypertension; E03.9 Hypothyroidism, unspecified; M85.89 Other specified disorders of bone density and structure, multiple sites; E78.5 Hyperlipidemia, unspecified; I67.2 Cerebral atherosclerosis; R94.31 Abnormal electrocardiogram [ECG] [EKG]; F41.9 Anxiety disorder, unspecified; I25.10 Atherosclerotic heart disease of native coronary artery without angina pectoris; W19.XXXA Unspecified fall, initial encounter; Z20.828 Contact with and (suspected) exposure to other viral communicable diseases; Z23 Encounter for immunization; Z98.890 Other specified postprocedural states; Z87.891 Personal history of nicotine dependence; Z95.5 Presence of coronary angioplasty implant and graft; Z79.899 Other long term (current) drug therapy; Z79.82 Long term (current) use of aspirin
CPT/HCPCS: 25605; 20690; 12011; 36415; 51701; 70450; 71045; 73100; 73110; 80048; 80053; 81003; 83735; 84443; 85014; 85018; 85027; 87635; 90471; 90715; 93005; 96374; 97110; 97116; 97161; 97165; 97535; 99285; A4565; A9270; C1713; C9803; G0378; J0690; J1100; J2270; J2405; J2704; J7030; J7120; U0003

== ENCOUNTER 2021-08-14 14:44 | Emergency (ER) | payer OTHER, SELFPAY ==
[2021-08-14] VITALS (19 sets, daily range): BP systolic 102–139; BP diastolic 53–83; PULSE 60–64; RESP 16–18; TEMP 36.1; O2SAT 96–100
--- NOTE | ~2021-08-14 | XR_ITS ---
XR finger 5th RT min 2V DATE: 08/14/2021 18:04 INDICATION: Reduction of right fifth digit fracture TECHNIQUE: 3 views COMPARISON: 08/14/2021 prereduction images FINDINGS: There is approximately 30 degrees apex volar and 18 degrees apex lateral angulation at the transverse fracture at the junction of the base and proximal shaft of the fifth digit, with minimal l ateral displacement. There is a splint along the posteromedial aspect of the wrist and hand. IMPRESSION: Splinted proximal phalangeal fracture, approximately 18 degrees apex lateral and 30 degre es apex volar residual angulation, minimal lateral displacement Reviewed, dictated and finalized at location A. IMPRESSION: Splinted proximal phalangeal fracture, approximately 18 degrees ape x lateral and 30 degrees apex volar residual angulation, minimal lateral displa cement
--- NOTE | ~2021-08-14 | XR_ITS ---
XR hand RT min 3V DATE: 08/14/2021 15:58 INDICATION: Fall. Laceration of the on the right hand TECHNIQUE: 3 views COMPARISON: 08/24/2020 right wrist FINDINGS: There is prominent osteopenia. There is an old healed fracture of the distal radial metaphysis. There is severe osteoarthritic change at the first carpometacarpal joint. There is prominent osteoart hritic change involving particularly the interphalangeal joint of the first digit and distal interpha langeal joints of the remaining digits. There is a transverse nondisplaced fracture of the base of the proximal phalanx of the fourth digit. There is a transverse fracture at the junction of the base and proximal shaft of the proximal phalanx of fifth digit with minimal lateral displacement and prominent apical anterolateral angulation. No other fracture or dislocation is evident. IMPRESSION: Fractures of the proximal phalanges of the fourth digits Prominent osteoarthritic change at the first carpometacarpal and multiple interphalangeal joints Osteopenia Old healed distal radial fracture Reviewed, dictated and finalized at location A. IMPRESSION: Fractures of the proximal phalanges of the fourth digits Prominent osteoarthritic change at the first carpometacarpal and multiple inter phalangeal joints Osteopenia Old healed distal radial fracture
--- NOTE | 2021-08-14 15:35 | PC.NURSE ---
EDP at bedside to assess pt.
--- NOTE | 2021-08-14 15:44 | ED.FALL ---
HPI - Fall General Chief Complaint: Fall Stated Complaint: laceration Time Seen by Provider: 08/14/21 15:09 History of Present Illness HPI Narrative: Patient is a 80-year-old female who presents to emergency room after tripping over the sidewalk and falling. Patient states that she has right hand pain. Patient states she does have abrasions to bilateral knees. Patient does have history of Alzheimer's is an alert and oriented x1. Patient denies any loss of consciousness. Patient's daughter is at bedside and states that patient being alert and oriented x1 in his baseline. Patient's daughter states that she feels that her mother may have a urinary tract infection because she has been acting mildly different at times. Patient denies pain anywhere else on her body. Related Data Home Medications Medication Instructions Recorded Confirmed levothyroxine 50 mcg tablet 50 mcg PO DAILY 03/24/19 08/08/21 aspirin 81 mg tablet,delayed 81 mg PO DAILY 06/27/19 08/08/21 release donepezil 5 mg tablet 5 mg PO DAILY tablet 06/27/19 08/08/21 losartan 25 mg tablet 25 mg PO DAILY 06/27/19 08/08/21 quetiapine 25 mg tablet 12.5 mg PO DAILY tablet 06/27/19 08/08/21 escitalopram oxalate 5 mg PO DAILY 04/22/20 08/08/21 buspirone 5 mg tablet 5 mg PO TID tablet 05/02/21 08/08/21 Allergies Allergy/AdvReac Type Severity Reaction Status Date / Time No Known Allergies Allergy Verified 08/14/21 17:45 Review of Systems Review of Systems: Patient has an unreliable review of systems secondary to her underlying dementia. [facility] Past Medical History Medical History Acquired hypothyroidism Anxiety BMI 20.0-20.9, adult BMI less than 19,adult Central retinal vein occlusion with macular edema Coronary artery disease Coronary artery disease Dementia Essential hypertension Hyperlipidemia Surgical History Surgical History Displaced fracture of distal end of right radius Status post external fixator placement in Apr 23, 2020 History of appendectomy History of coronary artery bypass graft (~2009) History of laparoscopy With adhesiolysis. History of tonsillectomy Family History Family History Sibling Family history of suicide Family history of malignant neoplasm Patient's sister is Father Malignant neoplasm of prostate Family history of malignant neoplasm Patient's father is Mother Patient's mother is Social History Social History Social History: Surrogate decision maker: Tiny Salas (child) or Dar Andrea (spouse). Code status: Full code. Smoking status: Never smoker Alcohol intake: never Substance use: never Substance use type: does not use Additional living arrangements comments: Resident at [facility]. Gender identity (if verbalized by the patient): Female Spiritual care concerns: No Exam Narrative: Constitutional: Patient is well-nourished in no acute distress. Patient is alert and oriented to self only. HEENT: Moist mucous membranes. No scleral icterus. No lymphadenopathy. Lungs: Lung sounds are clear to auscultation bilaterally. No accessory muscle use. No rhonchi, rales, or wheezes noted. Cardiovascular: Apical pulse is regular rate and rhythm. S1-S2 noted, no S3 or S4 noted. No gallops, murmurs, or rubs noted. Abdomen: Soft, round, and nontender. No palpable masses. Extremities: No edema. Nontender. Skin: Patient has a large amount of ecchymosis noted to the dorsal surface of the right hand as well as deformity to right pinky. There is a 2.5 cm laceration noted to patient's palmar surface of hand. Neurological: No focal neurological deficits. Cranial nerves II-XII grossly intact. Psychiatric: C
--- NOTE | 2021-08-14 15:51 | PC.NURSE ---
Radiology at bedside to obtain xrays.
[2021-08-14 16:19] LABS: Add Urine Microscopic? YES; Appearance Urine Cloudy (Clear); Bacteria Urine 1+ /hpf; Bilirubin Urine Negative (Negative); Blood Urine 1+ (Negative); Color Urine Yellow (Yellow); Glucose Urine UA Negative (Negative); Ketones Urine Negative (Negative); Leukocyte Esterase Ur 1+ LEU/UL (Negative); Mucus Urine Rare /lpf; Nitrate Urine Positive (Negative); Protein Urine Negative (Negative); Specific Grav Ur 1.016 (1.001-1.035); Urobilinogen Urine Negative mg/dL (<2.0); WBC Urine 31-50 /hpf
--- NOTE | 2021-08-14 17:48 | PC.NURSE ---
ERP at bedside to suture R hand laceration.
== END 2021-08-14 18:44 ==
PROVIDERS: Emergency Provider Nurse Practitioner Adult Health; PCP Nurse Practitioner
DX: S62.616A Displaced fracture of proximal phalanx of right little finger, initial encounter for closed fracture (principal); S62.644A Nondisplaced fracture of proximal phalanx of right ring finger, initial encounter for closed fracture; S61.411A Laceration without foreign body of right hand, initial encounter; N39.0 Urinary tract infection, site not specified; G30.9 Alzheimer's disease, unspecified; F02.80 Dementia in other diseases classified elsewhere, unspecified severity, without behavioral disturbance, psychotic disturbance, mood disturbance, and anxiety; I25.10 Atherosclerotic heart disease of native coronary artery without angina pectoris; I10 Essential (primary) hypertension; E78.5 Hyperlipidemia, unspecified; E03.9 Hypothyroidism, unspecified; H34.8190 Central retinal vein occlusion, unspecified eye, with macular edema; F41.9 Anxiety disorder, unspecified; Z95.1 Presence of aortocoronary bypass graft; Z79.82 Long term (current) use of aspirin; M85.841 Other specified disorders of bone density and structure, right hand; W01.0XXA Fall on same level from slipping, tripping and stumbling without subsequent striking against object, initial encounter
CPT/HCPCS: 12001; 26605; 26725; 51701; 73130; 73140; 81001; 87077; 87086; 87186; 99285

== ENCOUNTER 2021-09-09 07:25 | Emergency (ER) | payer OTHER, SELFPAY ==
--- NOTE | ~2021-09-09 | CT_ITS ---
EXAMINATION: CT brain wo con INDICATION: Head injury COMPARISON: 04/22/2020 TECHNIQUE: Standard unenhanced head CT. The dose-length product (DLP) was 529.67 mGy-cm. The mA was a djusted according to patient size. Iterative reconstruction technique was employed. FINDINGS: There is no acute intraparenchymal hemorrhage. No evidence of mass lesion. No evidence of a cute infarction. There is a small area of chronic encephalomalacia in the right frontal lobe. There i s moderate periventricular and subcortical hypodensity probably related to small vessel ischemic dise ase. There is moderate prominence of the sulci and ventricles related to cerebral atrophy. Intracrani al calcified cerebral atherosclerosis is noted. There are no extra-axial collections. There is no mas s effect or midline shift. Changes in the right globe are likely from ocular lens surgery. The visual ized sinuses and mastoid air cells are well aerated. IMPRESSION: 1. No acute intracranial abnormality. 2. Age related findings. Reviewed, dictated and finalized at location A.
--- NOTE | ~2021-09-09 | CT_ITS ---
EXAMINATION: CT cervical spine wo con DATE: 09/09/2021 08:14 INDICATION: Head injury TECHNIQUE: Computed tomography (CT) of the cervical spine was performed without intravenous contrast. The dose-length product (DLP) was 142.26 mGy-cm. Automated exposure control and iterative reconstruc tion technique were employed. COMPARISON: None FINDINGS: There is no fracture. There are 2 mm of anterolisthesis of C3 on C4 and 2 mm of retrolisthe sis C5 on C6. There is severe loss of intervertebral disc space height at C2-3, C5-6, and T1-2. The o dontoid is intact. The prevertebral soft tissues are normal. There is moderate multilevel facet and u ncovertebral joint osteoarthritis. Scarring is noted in the lung apices. There is a small left mastoi d effusion. IMPRESSION: 1. Severe cervical spondylosis without acute findings. Reviewed, dictated and finalized at location A.
[2021-09-09 07:23] VITALS: BP 131/55; PULSE 60; RESP 17; TEMP 36.5; O2SAT 100
[2021-09-09 07:33] VITALS: RESP 16; O2SAT 100
--- NOTE | 2021-09-09 07:51 | ECG_ITS ---
Measurements Intervals Decker Rate: 58 P: 47 NH: 167 QRS: 14 QRSD: 85 T: 56 QT: 430 QTc: 426 Interpretive Statements SINUS BRADYCARDIA POSSIBLE ANTERIOR MYOCARDIAL INFARCTION , OF INDETERMINATE AGE [30 ms Q WAVE IN V3/V4, OR R < 0.2 mV IN V4] NONSPECIFIC T-WAVE ABNORMALITY ABNORMAL ECG COMPARED TO ECG 04/22/2020 18:32:57 SINUS BRADYCARDIA NOW PRESENT Electronically Signed On 09-09-2021 15:47:12 CDT by Scotty Owen M.D.
--- NOTE | 2021-09-09 08:01 | ED.FALL ---
HPI - Fall General Chief Complaint: Fall Stated Complaint: ground level fall, unwitnessed Time Seen by Provider: 09/09/21 07:32 Source: patient, RN notes reviewed and old records reviewed Mode of arrival: EMS Limitations: dementia History of Present Illness HPI Narrative: THis is an 80 year old female with history of dementia who presents from half-way for evaluation of an unwitnessed fall. Patient states she accidentally slipped and fell. She denies any injury or pain. She is unsure if she hit her head. She is oriented to person and place which is her baseline. EMS reports patient was concerned about a bruise to her left cheek that appears to be an age spot. Related Data Home Medications Medication Instructions Recorded Confirmed levothyroxine 50 mcg tablet 50 mcg PO DAILY 03/24/19 08/08/21 aspirin 81 mg tablet,delayed 81 mg PO DAILY 06/27/19 08/08/21 release donepezil 5 mg tablet 5 mg PO DAILY tablet 06/27/19 08/08/21 losartan 25 mg tablet 25 mg PO DAILY 06/27/19 08/08/21 quetiapine 25 mg tablet 12.5 mg PO DAILY tablet 06/27/19 08/08/21 escitalopram oxalate 5 mg PO DAILY 04/22/20 08/08/21 buspirone 5 mg tablet 5 mg PO TID tablet 05/02/21 08/08/21 Allergies Allergy/AdvReac Type Severity Reaction Status Date / Time No Known Allergies Allergy Verified 09/09/21 07:33 Review of Systems Review of Systems: All systems reviewed & are unremarkable except as noted in HPI and below PMFSH Past Medical History Medical History Acquired hypothyroidism Anxiety BMI 20.0-20.9, adult BMI less than 19,adult Central retinal vein occlusion with macular edema Coronary artery disease Coronary artery disease Dementia Essential hypertension Hyperlipidemia Surgical History Surgical History Displaced fracture of distal end of right radius Status post external fixator placement in Apr 23, 2020 History of appendectomy History of coronary artery bypass graft (~2009) History of laparoscopy With adhesiolysis. History of tonsillectomy Family History Family History Sibling Family history of suicide Family history of malignant neoplasm Patient's sister is Father Malignant neoplasm of prostate Family history of malignant neoplasm Patient's father is Mother Patient's mother is Social History Social History Social History: Surrogate decision maker: Tiny Salas (child) or Dar Mendez (spouse). Code status: Full code. Smoking status: Never smoker Alcohol intake: never Substance use: never Substance use type: does not use Additional living arrangements comments: Resident at [facility]. Gender identity (if verbalized by the patient): Female Spiritual care concerns: No Exam Const: General: no acute distress and alert Other: oriented to 2 HENMT: Head: normocephalic, atraumatic and other (no facial bruising) Face and sinus: normal facial exam and face symmetric Mouth: Yes Normal oral and palatal mucosa present, Yes lip normal, Yes oropharynx normal and Yes moist mucous membranes Eyes: Pupils: Equal, round and reactive pupils present EOM: EOMs intact bilaterally Neck: Neck: normal visual inspection Chest: Chest palpation & inspection: normal inspection of the chest Resp: Effort & Inspection: normal respiratory effort and no retractions Auscultation: clear to auscultation bilaterally Cardio: Rate: regular rate Rhythm: regular rhythm Heart sounds: no murmurs GI: GI Palp: Yes Soft to palpation, No Tenderness to palpation present (GI) and No Guarding due to palpation present (GI) Auscultation: normal bowel sounds : General: Yes no CVA tenderness Skin: General skin exam: no
--- NOTE | 2021-09-09 08:03 | PC.NURSE ---
pt to CT scan at this time.
[2021-09-09 08:24] VITALS: BP 137/57; PULSE 59; RESP 18; O2SAT 99
[2021-09-09 08:31] LABS: Basophils Percent Auto 0.6 % (0.2-1.2); Eosinophils Absolute Auto 0.1 K/mm3 (0-0.3); Eosinophils Percent Auto 1.1 % (0-4.4); Hemoglobin 14.1 g/dL (12.0-15.0); Immature Granulocyte Absolute 0.02 K/mm3 (0.00-0.031); Immature Granulocyte Percent A 0.4 % (0-0.5); Lymphocytes Absolute Auto 1.38 K/mm3 (0.9-3.2); Mean Corpuscular HGB Conc 34.4 g/dl (32-36); Mean Corpuscular Hemoglobin 32.9 pg (26-34); Mean Corpuscular Volume 95.8 fl (80-100); Mean Platelet Volume 10.4 fl (7.4-10.4); Monocytes Absolute Auto 0.5 K/mm3 (0.1-0.6); Monocytes Percent Auto 9.2 % (2.6-8.5); Neutrophils Absolute Auto 3.3 K/mm3 (1.3-6.7); Neutrophils Percent Auto 62.7 % (45.5-73.1); Platelet Count Result 219 k/mm3 (150-375); Red Blood Count 4.28 M/mm3 (4.2-5.4); Red Cell Distribution Width 12.3 % (11.5-14.5); White Blood Count 5.3 K/mm3 (4.5-10.0)
[2021-09-09 08:36] LABS: Bacteria Urine Trace /hpf; Squamous Epithelial Cell Urine Rare /hpf (Few); WBC Urine >75 /hpf
[2021-09-09 08:43] LABS: Alanine Aminotransferase 15 U/L (4-35); Albumin Level 3.5 g/dL (3.5-5.1); Alkaline Phosphatase 84 U/L (38-126); Anion Gap 4 mmol/L (8-16); Aspartate Amino Transferase 28 U/L (14-36); Bilirubin,Total 0.6 mg/dL (0.2-1.3); Blood Urea Nitrogen 13 mg/dL (7-17); Calcium 8.5 mg/dL (8.4-10.2); Carbon Dioxide 30 mmol/L (22-30); Chloride 100 mmol/L (98-107); Estimated CRCL calculation 34 ml/min; Estimated Glomerular Filt Rate 60; Glucose 95 mg/dL (65-110); Potassium 4.1 mmol/L (3.4-5.0); Sodium 134 mmol/L (137-145)
[2021-09-09 08:44] LABS: Add Urine Microscopic? YES; Appearance Urine Cloudy (Clear); Bilirubin Urine Negative (Negative); Blood Urine 1+ (Negative); Color Urine Yellow (Yellow); Glucose Urine UA Negative (Negative); Ketones Urine Negative (Negative); Leukocyte Esterase Ur 1+ LEU/UL (Negative); Nitrate Urine Positive (Negative); Protein Urine Trace mg/dL (Negative); Urobilinogen Urine 0.2 mg/dL (<2.0)
[2021-09-09 09:02] VITALS: BP 129/52; PULSE 61; RESP 15; O2SAT 99
[2021-09-09] MEDS: CEPHALEXIN 500 MG CAPSULE PO (09:20)
--- NOTE | 2021-09-09 09:27 | PC.NURSE ---
[facility] accepted return to ct eta 30min trip#[id number]
[2021-09-09 09:51] VITALS: BP 129/52; PULSE 60; RESP 18; O2SAT 100
== END 2021-09-09 09:54 ==
PROVIDERS: Emergency Provider General Practice; PCP Internal Medicine
DX: S09.90XA Unspecified injury of head, initial encounter (principal); N39.0 Urinary tract infection, site not specified; F03.90 Unspecified dementia, unspecified severity, without behavioral disturbance, psychotic disturbance, mood disturbance, and anxiety; I10 Essential (primary) hypertension; E78.5 Hyperlipidemia, unspecified; I25.10 Atherosclerotic heart disease of native coronary artery without angina pectoris; E03.9 Hypothyroidism, unspecified; Z79.82 Long term (current) use of aspirin; Z95.1 Presence of aortocoronary bypass graft; M47.812 Spondylosis without myelopathy or radiculopathy, cervical region; W01.0XXA Fall on same level from slipping, tripping and stumbling without subsequent striking against object, initial encounter
CPT/HCPCS: 36415; 70450; 72125; 80053; 81001; 85025; 87077; 87086; 87186; 93005; 99284; A9270

== ENCOUNTER 2021-10-01 19:21 | Emergency (ER) | payer OTHER, SELFPAY ==
[2021-10-01 19:19] VITALS: BP 114/80; PULSE 60; RESP 18; TEMP 35.9; O2SAT 100
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
--- NOTE | 2021-10-01 19:53 | PC.NURSE ---
@ 192 called [facility] to request transport. ETA midnight @ 1930 called [facility] to request transport. No transfer trucks tonight. declined @193 called [facility] to request transport. declined. - extremely busy @ 1933 called [facility] to request transport. declined - extremely busy.
[2021-10-01 20:04] LABS: Appearance Urine Clear (Clear); Bilirubin Urine Negative (Negative); Blood Urine Trace-lysed (Negative); Color Urine Yellow (Yellow); Glucose Urine UA Negative (Negative); Ketones Urine Negative (Negative); Leukocyte Esterase Ur Negative LEU/UL (Negative); Nitrate Urine Negative (Negative); Protein Urine Negative (Negative); Urobilinogen Urine 0.2 mg/dL (<2.0)
[2021-10-01 20:08] LABS: Mucus Urine Rare /lpf; Squamous Epithelial Cell Urine Rare /hpf (Few); WBC Urine 0-3 /hpf
[2021-10-01 20:09] LABS: Add Urine Microscopic? YES
--- NOTE | 2021-10-01 20:53 | PC.NURSE ---
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 No answer. Left message to call back with update. Vera TEJEDA witnessed call attempt.
[2021-10-01 22:38] VITALS: BP 147/68; PULSE 61; RESP 20; O2SAT 99
--- NOTE | 2021-10-01 22:59 | PC.NURSE ---
[facility] here to transport patient. [facility] cancelled
== END 2021-10-01 23:02 ==
PROVIDERS: Emergency Provider Nurse Practitioner Family; PCP Nurse Practitioner
DX: S61.213A Laceration without foreign body of left middle finger without damage to nail, initial encounter (principal); Y04.2XXA Assault by strike against or bumped into by another person, initial encounter
CPT/HCPCS: 51701; 81001; 99283

== ENCOUNTER 2021-10-06 10:59 | Emergency (ER) | payer OTHER, SELFPAY ==
[2021-10-06 11:04] VITALS: BP 113/60; PULSE 58; RESP 18; TEMP 36.2; O2SAT 98
[2021-10-06 12:56] LABS: Basophils Absolute Auto 0.1 K/mm3 (0.0-0.1); Basophils Percent Auto 0.5 % (0.2-1.2); Eosinophils Percent Auto 0.4 % (0-4.4); Hematocrit 38.7 % (37.0-47.0); Immature Granulocyte Absolute 0.02 K/mm3 (0.00-0.031); Immature Granulocyte Percent A 0.2 % (0-0.5); Lymphocytes Absolute Auto 2.18 K/mm3 (0.9-3.2); Lymphocytes Percent Auto 23.4 % (18.3-44.2); Mean Corpuscular HGB Conc 33.6 g/dl (32-36); Mean Corpuscular Hemoglobin 32.7 pg (26-34); Mean Corpuscular Volume 97.2 fl (80-100); Mean Platelet Volume 10.3 fl (7.4-10.4); Monocytes Absolute Auto 0.9 K/mm3 (0.1-0.6); Monocytes Percent Auto 9.1 % (2.6-8.5); Neutrophils Absolute Auto 6.2 K/mm3 (1.3-6.7); Neutrophils Percent Auto 66.4 % (45.5-73.1); Platelet Count Result 190 k/mm3 (150-375); Red Blood Count 3.98 M/mm3 (4.2-5.4); White Blood Count 9.3 K/mm3 (4.5-10.0)
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
[2021-10-06 13:05] LABS: Alanine Aminotransferase 19 U/L (6-35); Albumin Level 3.5 g/dL (3.5-5.1); Alkaline Phosphatase 79 U/L (38-126); Anion Gap 3 mmol/L (8-16); Aspartate Amino Transferase 33 U/L (14-36); Bilirubin,Total 0.5 mg/dL (0.2-1.3); Blood Urea Nitrogen 15 mg/dL (7-17); Calcium 8.4 mg/dL (8.4-10.2); Carbon Dioxide 28 mmol/L (22-30); Chloride 99 mmol/L (98-107); Estimated CRCL calculation 45 ml/min; Estimated Glomerular Filt Rate > 60; Glucose 89 mg/dL (65-110); Potassium 3.6 mmol/L (3.4-5.0); Sodium 130 mmol/L (137-145)
[2021-10-06 13:11] LABS: Appearance Urine Clear (Clear); Bilirubin Urine Negative (Negative); Blood Urine Negative (Negative); Color Urine Yellow (Yellow); Glucose Urine UA Negative (Negative); Ketones Urine Negative (Negative); Leukocyte Esterase Ur Negative LEU/UL (Negative); Nitrate Urine Negative (Negative); Protein Urine Negative (Negative); Specific Grav Ur 1.015 (1.001-1.035); Urobilinogen Urine 0.2 mg/dL (<2.0); pH Urine 7.5 (5.0-9.0)
[2021-10-06 13:45] VITALS: BP 136/88; PULSE 52; RESP 18; O2SAT 98
--- NOTE | 2021-10-06 14:00 | PC.NURSE ---
Report called to dong at [facility]. States that pt may have made a suicidal statement at some time but was unable to clarify when. Provider Qian Trent made aware and this RN and Foreign Garcia RN made at bedside at this time and pt denies si or hi.
[2021-10-06 14:15] VITALS: BP 102/88; PULSE 56; RESP 16; O2SAT 98
[2021-10-06 14:38] LABS: Add Urine Microscopic? NO
== END 2021-10-06 14:15 ==
PROVIDERS: Emergency Provider Nurse Practitioner Family; PCP Internal Medicine
DX: F03.90 Unspecified dementia, unspecified severity, without behavioral disturbance, psychotic disturbance, mood disturbance, and anxiety (principal); R10.30 Lower abdominal pain, unspecified; E03.9 Hypothyroidism, unspecified; I25.10 Atherosclerotic heart disease of native coronary artery without angina pectoris; E78.5 Hyperlipidemia, unspecified; I10 Essential (primary) hypertension
CPT/HCPCS: 36415; 80053; 81003; 85025; 99283

== ENCOUNTER 2021-11-03 09:15 | Emergency (ER) | payer OTHER, SELFPAY ==
[2021-11-03] VITALS (11 sets, daily range): BP systolic 102–137; BP diastolic 65–80; PULSE 61–93; RESP 16–27; TEMP 36.4; O2SAT 100
--- NOTE | ~2021-11-03 | XR_ITS ---
XR clavicle RT 11/03/2021 10:19 Indication: Right shoulder pain after fall Procedure: 2 views right shoulder Comparison: No prior studies for comparison. 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 No acute fracture or traumatic malalignment. Osteopenia. Calcified granuloma in the lung parenchyma. There is focal soft tissue abn ormality. No foreign bodies. Impression: 1: No acute fracture. Reviewed, dictated and finalized at location B. Impression: 1: No acute fracture.
--- NOTE | ~2021-11-03 | CT_ITS ---
EXAMINATION: CT brain wo con DATE: 11/03/2021 10:02 INDICATION: Minor head injury. TECHNIQUE: Computed tomography (CT) of the head was performed without intravenous contrast. The dose- length product was 605.33 mGy-cm. Automated exposure control and iterative reconstruction technique w ere employed. COMPARISON: CT dated 09/09/2021 FINDINGS: Generalized atrophy. There are scattered moderate periventricular and subcortical white mat ter changes, most likely related to small vessel ischemic disease (microangiopathy). There is chronic right parietal lobe infarction extending to the vertex. Paranasal sinuses and mastoids are pneumatiz ed. No depressed skull fractures. There is intracranial atherosclerosis. IMPRESSION: 1. No acute intracranial abnormality. 2: Chronic right parietal lobe infarction. 3: Chronic age-related findings. Reviewed, dictated and finalized at location B.
--- NOTE | ~2021-11-03 | XR_ITS ---
XR chest 2V 11/03/2021 10:19 Indication: Chest wall bruising. Procedure: AP and lateral views of the chest Comparison: 04/23/2020 Findings: Status post median sternotomy for CABG. Heart size normal. Chronic apical pleural thickenin g/scarring. No focal air space disease, pulmonary edema, pleural effusion or suspected pneumothorax. Impression: 1: Reviewed, dictated and finalized at location B. Impression: 1:
--- NOTE | ~2021-11-03 | CT_ITS ---
EXAMINATION: CT soft tissue neck wo con DATE: 11/03/2021 10:02 INDICATION: Tracheal bruising. Fall. TECHNIQUE: Computed tomography (CT) of the neck was performed without intravenous contrast. Automated exposure control and iterative reconstruction technique were employed. The dose-length product was 3 23.29 mGy-cm. COMPARISON: CT cervical spine 09/09/2021 FINDINGS: There is mild scarring at the lung apices. There are changes of coronary artery bypass teodoro ting. There are likely changes of right ocular lens replacement surgery. There is mild mucosal thicke santi in the ethmoid sinuses. There is a small left mastoid effusion. There is a fracture of head of r ight clavicle with 5 mm anterior displacement of the distal fracture fragment. There is severe cervic al spondylosis. IMPRESSION: 1. Fracture of head of right clavicle. Reviewed, dictated and finalized at location A.
--- NOTE | 2021-11-03 10:00 | PC.NURSE ---
Patient off unit to Radiology.
[2021-11-03 10:36] LABS: Basophils Percent Auto 0.4 % (0.2-1.2); Eosinophils Percent Auto 0.1 % (0-4.4); Hematocrit 38.5 % (37.0-47.0); Hemoglobin 12.7 g/dL (12.0-15.0); Immature Granulocyte Absolute 0.03 K/mm3 (0.00-0.031); Immature Granulocyte Percent A 0.4 % (0-0.5); Lymphocytes Absolute Auto 1.52 K/mm3 (0.9-3.2); Lymphocytes Percent Auto 22.4 % (18.3-44.2); Mean Corpuscular Hemoglobin 32.5 pg (26-34); Mean Corpuscular Volume 98.5 fl (80-100); Mean Platelet Volume 10.4 fl (7.4-10.4); Monocytes Absolute Auto 0.8 K/mm3 (0.1-0.6); Monocytes Percent Auto 11.3 % (2.6-8.5); Neutrophils Absolute Auto 4.4 K/mm3 (1.3-6.7); Neutrophils Percent Auto 65.4 % (45.5-73.1); Platelet Count Result 172 k/mm3 (150-375); Red Blood Count 3.91 M/mm3 (4.2-5.4); Red Cell Distribution Width 13.8 % (11.5-14.5); White Blood Count 6.8 K/mm3 (4.5-10.0)
[2021-11-03 10:49] LABS: Anion Gap 3 mmol/L (8-16); Blood Urea Nitrogen 18 mg/dL (7-17); Calcium 8.8 mg/dL (8.4-10.2); Carbon Dioxide 31 mmol/L (22-30); Chloride 103 mmol/L (98-107); Estimated Glomerular Filt Rate > 60; Glucose 94 mg/dL (65-110); Potassium 4.2 mmol/L (3.4-5.0); Sodium 137 mmol/L (137-145)
[2021-11-03 11:26] LABS: Appearance Urine Slightly Cloudy (Clear); Bilirubin Urine Negative (Negative); Color Urine Yellow (Yellow); Glucose Urine UA Negative (Negative); Ketones Urine 1+ mg/dL (Negative); Leukocyte Esterase Ur Negative LEU/UL (Negative); Nitrate Urine Negative (Negative); Protein Urine 1+ mg/dL (Negative); pH Urine 8.5 (5.0-9.0)
[2021-11-03 11:38] LABS: Mucus Urine Rare /lpf; Squamous Epithelial Cell Urine Rare /hpf (Few); WBC Urine 0-3 /hpf
[2021-11-03 12:08] LABS: Add Urine Microscopic? YES; Blood Urine Trace-Intact (Negative)
--- NOTE | 2021-11-03 12:24 | ED.FALL ---
HPI - Fall General Chief Complaint: Fall Stated Complaint: pain s/p fall Time Seen by Provider: 11/03/21 09:26 History of Present Illness HPI Narrative: Is an 81-year-old female with history of dementia that presents ER after being found on the ground at her memory care. Patient has had been having frequent falls. She has bruising across her chest and some swelling to her right clavicular head as well as bruising over her trachea. She is placed in a c-collar. Patient is not on any blood thinners. She cannot give any history. Related Data Home Medications Medication Instructions Recorded Confirmed levothyroxine 50 mcg tablet 50 mcg PO DAILY 03/24/19 09/15/21 aspirin 81 mg tablet,delayed 81 mg PO DAILY 06/27/19 09/15/21 release (Adult Low Dose Aspirin) donepezil 5 mg tablet 5 mg PO DAILY 06/27/19 09/15/21 losartan 25 mg tablet 25 mg PO DAILY 06/27/19 09/15/21 quetiapine 25 mg tablet 12.5 mg PO DAILY 06/27/19 09/15/21 escitalopram oxalate 5 mg tablet 5 mg PO DAILY 04/22/20 09/15/21 buspirone 5 mg tablet 5 mg PO TID 05/02/21 09/15/21 Allergies Allergy/AdvReac Type Severity Reaction Status Date / Time No Known Allergies Allergy Verified 10/03/21 15:32 Review of Systems Review of Systems: ROS unobtainable: Yes unobtainable due to mental status (Dementia) [facility] Past Medical History Medical History (Updated 11/03/21 @ 12:40 by Javier Hawthorne MD) Acquired hypothyroidism Anxiety BMI 20.0-20.9, adult BMI less than 19,adult Central retinal vein occlusion with macular edema Coronary artery disease Coronary artery disease Dementia Essential hypertension Hyperlipidemia Surgical History Surgical History (Updated 10/03/21 @ 15:32 by Lala Wilson) Displaced fracture of distal end of right radius Status post external fixator placement in Apr 23, 2020 History of appendectomy History of coronary artery bypass graft (~2009) History of laparoscopy With adhesiolysis. History of tonsillectomy Family History Family History (System 10/03/21 @ 15:32 by Lala Wilson) Sibling Family history of suicide Family history of malignant neoplasm Patient's sister is Father Malignant neoplasm of prostate Family history of malignant neoplasm Patient's father is Mother Patient's mother is Social History Social History (System 10/03/21 @ 15:32 by Lala Wilson) Social History: Surrogate decision maker: Tiny Salas (child) or Dar Mendez (spouse). Code status: Full code. Smoking status: Never smoker Alcohol intake: never Substance use: never Substance use type: does not use Additional living arrangements comments: Resident at [facility]. Gender identity (if verbalized by the patient): Female Spiritual care concerns: No Exam Narrative: GENERAL: Well-appearing, well-nourished, and in no acute distress. HEAD: Normocephalic, atraumatic. EYES: PERRL and EOMI. ENT: Mucous membranes moist. NECK: Supple. No midline tenderness of cervical spine. Bruising over the trachea without tenderness or crepitus. CHEST: Clear to auscultation. No respiratory distress. Bruising over anterior chest wall especially the right inferior to the clavicle. Tenderness and swelling to the navicular head on the right. HEART: Regular rate and rhythm. Normal peripheral pulses. ABDOMEN: Soft, nontender, nondistended. EXTREMITIES: Normal range of motion. No edema. SKIN: Warm, dry, no rash. NEURO: Alert and oriented x1. Course Course Emergency Course: Patient family informed of results. Will place in sling for comfort regarding clavicle fracture. Vital Signs Vital signs: Vital Signs Temperature 97.6 F 11/03/21 09:15 Pulse Rate 70 11/03/21 09:15 Respiratory Rate 23 H 11/03/21 09:15 Blood Pressure 137/65 11/03/21 09:15 Pulse Oximetry 100 11/03/21 09:15 Oxygen Delivery Room Air 11/03/21 09:15 Temperature
== END 2021-11-03 13:00 ==
PROVIDERS: Emergency Provider Emergency Medicine; PCP Internal Medicine
DX: S42.001A Fracture of unspecified part of right clavicle, initial encounter for closed fracture (principal); E03.9 Hypothyroidism, unspecified; I25.10 Atherosclerotic heart disease of native coronary artery without angina pectoris; I10 Essential (primary) hypertension; E78.5 Hyperlipidemia, unspecified; F03.90 Unspecified dementia, unspecified severity, without behavioral disturbance, psychotic disturbance, mood disturbance, and anxiety; W19.XXXA Unspecified fall, initial encounter; Y92.89 Other specified places as the place of occurrence of the external cause
CPT/HCPCS: 36415; 70450; 70490; 71046; 73000; 80048; 81001; 85025; 99284; A4565

== ENCOUNTER 2021-11-04 13:01 | Emergency (ER) | payer OTHER, SELFPAY ==
[2021-11-04] VITALS (7 sets, daily range): BP systolic 110–144; BP diastolic 64–78; PULSE 54–63; RESP 13–22; TEMP 36.6; O2SAT 95–99
--- NOTE | ~2021-11-04 | CT_ITS ---
EXAMINATION: CT brain wo con DATE: 11/04/2021 13:31 INDICATION: Status post fall TECHNIQUE: Computed tomography (CT) of the head was performed without intravenous contrast. The dose- length product was 529.67 mGy-cm. Automated exposure control and iterative reconstruction technique w ere employed. COMPARISON: CT dated 11/03/2021 FINDINGS: Generalized atrophy. Chronic right parietal lobe infarction. There are scattered moderate p eriventricular and subcortical white matter changes, most likely related to small vessel ischemic dis ease (microangiopathy). No acute intracranial hemorrhage, infarction, mass or mass effect. No ventric ulomegaly or midline shift. There is intracranial atherosclerosis. Paranasal sinuses and mastoids are pneumatized. No depressed skull fractures. IMPRESSION: 1. No acute intracranial abnormality. No significant change from prior examination. Reviewed, dictated and finalized at location B. IMPRESSION: 1. No acute intracranial abnormality. No significant change from prior examinat ion.
--- NOTE | ~2021-11-04 | XR_ITS ---
XR chest 1V DATE: 11/04/2021 13:35 INDICATION: Anterior chest bruising. Altered mental status TECHNIQUE: AP chest COMPARISON: 11/03/2021 AP and lateral chest FINDINGS: Status post sternotomy. Heart size appears within normal limits. There is prominent aortic calcification. No hilar or mediastinal enlargement. No pulmonary infiltrate or consolidation, pleural effusion or pulmonary vascular congestion or pneumo thorax. Diffuse osteopenia. There is rotator cuff atrophy and glenohumeral osteoarthritis of the right. IMPRESSION: No active cardiac pulmonary disease Aortic atherosclerosis Reviewed, dictated and finalized at location A.
--- NOTE | ~2021-11-04 | CT_ITS ---
EXAMINATION: CT cervical spine wo con DATE: 11/04/2021 13:31 INDICATION: Recent fall. Altered mental state. TECHNIQUE: Computed tomography (CT) of the cervical spine was performed without intravenous contrast. Automated exposure control and iterative reconstruction technique were employed. Exam dose: 115.09 mGy-cm total exam DLP. COMPARISON: None FINDINGS: C1 and C2 are normally aligned and the odontoid process is intact. No fracture or dislocati on or locked facet or prevertebral soft tissue swelling. There is minimal dextroscoliosis preservation of cervical curvature. There is moderate degenerative disc disease at C2-3. There is severe degenerative disc disease and minimal anterolisthesis at C3-4. There is moderate degenerative disc disease and minimal retrolisthesis at C4-5. There is severe degenerative disc disease and approximately 1.5 mm retrolisthesis at C5-6. There is moderate degenerative disc disease at C6-7. There is 2 mm anterolisthesis at C7-T1. There is severe degenerative disc disease at T1-2. There is degenerative change at the apophyseal and uncovertebral joints throughout the cervical spine . . IMPRESSION: Prominent cervical spondylosis; no fracture or dislocation or locked facet Reviewed, dictated and finalized at Location A. Reviewed, dictated and finalized at location A. IMPRESSION: Prominent cervical spondylosis; no fracture or dislocation or lock ed facet
--- NOTE | ~2021-11-04 | CT_ITS ---
EXAMINATION: CT abdomen pelvis wo con DATE: 11/04/2021 15:04 INDICATION: Status post fall. Drop in hemoglobin. TECHNIQUE: Computed tomography (CT) of the abdomen and pelvis was performed without intravenous contr ast. The dose-length product was 295.60 mGy-cm. Automated exposure control and iterative reconstructi on technique were employed. COMPARISON: CT dated 03/07/2011 FINDINGS: There is atherosclerosis and ectasia of the aorta without aneurysm. There is gas in the chucho dder, likely from recent intervention. There is dependent atelectasis. There are median sternotomy wires partially visualized. Borderline he art size. The liver, spleen, pancreas, adrenal glands and kidneys are unremarkable. There are are jorden ateral extrarenal pelvis. No free air or free fluid. Gallbladder is present. There is osteoarthritis of the hips. Severe lower thoracic and lumbar spondylosis. IMPRESSION: 1. No acute abdominal abnormality. No findings to explain drop in hemoglobin. Reviewed, dictated and finalized at location B.
--- NOTE | 2021-11-04 13:08 | ECG_ITS ---
Measurements Intervals [place] Rate: 60 P: 21 VT: 160 QRS: -17 QRSD: 87 T: 25 QT: 439 QTc: 440 Interpretive Statements SINUS RHYTHM WITH MARKED SINUS ARRHYTHMIA, APCS INFERIOR MYOCARDIAL INFARCTION , PROBABLY OLD [40+ ms Q WAVE AND/OR ST/T ABNORMALITY IN II/aVF] MODERATE T-WAVE ABNORMALITY, CONSIDER ANTERIOR ISCHEMIA [-0.1+ mV T WAVE IN V3/V4] NO PREVIOUS ECG AVAILABLE FOR COMPARISON ABNORMAL ECG Electronically Signed On 11-05-2021 13:40:50 CDT by Scotty Owen M.D.
[2021-11-04 14:09] LABS: Basophils Percent Auto 0.5 % (0.2-1.2); Eosinophils Percent Auto 0.4 % (0-4.4); Hematocrit 33.8 % (37.0-47.0); Hemoglobin 11.3 g/dL (12.0-15.0); Immature Granulocyte Absolute 0.03 K/mm3 (0.00-0.031); Immature Granulocyte Percent A 0.4 % (0-0.5); Lymphocytes Absolute Auto 2.24 K/mm3 (0.9-3.2); Lymphocytes Percent Auto 29.2 % (18.3-44.2); Mean Corpuscular HGB Conc 33.4 g/dl (32-36); Mean Corpuscular Hemoglobin 32.9 pg (26-34); Mean Corpuscular Volume 98.5 fl (80-100); Mean Platelet Volume 10.5 fl (7.4-10.4); Monocytes Absolute Auto 0.9 K/mm3 (0.1-0.6); Monocytes Percent Auto 11.5 % (2.6-8.5); Neutrophils Absolute Auto 4.5 K/mm3 (1.3-6.7); Platelet Count Result 143 k/mm3 (150-375); Red Blood Count 3.43 M/mm3 (4.2-5.4); Red Cell Distribution Width 13.8 % (11.5-14.5); White Blood Count 7.7 K/mm3 (4.5-10.0)
[2021-11-04 14:19] LABS: Alanine Aminotransferase 16 U/L (6-35); Albumin Level 2.9 g/dL (3.5-5.1); Alkaline Phosphatase 63 U/L (38-126); Anion Gap 0 mmol/L (8-16); Aspartate Amino Transferase 28 U/L (14-36); Bilirubin,Total 0.5 mg/dL (0.2-1.3); Blood Urea Nitrogen 17 mg/dL (7-17); Calcium 7.8 mg/dL (8.4-10.2); Carbon Dioxide 32 mmol/L (22-30); Chloride 102 mmol/L (98-107); Estimated CRCL calculation 33 ml/min; Estimated Glomerular Filt Rate 60; Glucose 94 mg/dL (65-110); Potassium 3.7 mmol/L (3.4-5.0); Sodium 134 mmol/L (137-145)
--- NOTE | 2021-11-04 15:55 | ECG_ITS ---
Measurements Intervals [place] Rate: 56 P: 31 MA: 162 QRS: 3 QRSD: 82 T: 46 QT: 425 QTc: 412 Interpretive Statements SINUS BRADYCARDIA WITH OCCASIONAL SUPRAVENTRICULAR PREMATURE COMPLEXES MODERATE T-WAVE ABNORMALITY, CONSIDER ANTERIOR ISCHEMIA [-0.1+ mV T WAVE IN V3/V4] ABNORMAL ECG COMPARED TO ECG 11/04/2021 13:08:42 SINUS BRADYCARDIA NOW PRESENT Electronically Signed On 11-07-2021 12:27:55 CDT by Scotty Owen M.D.
--- NOTE | 2021-11-04 16:21 | ED.AMS ---
HPI - Altered Mental Status General Chief Complaint: Altered Mental Status Stated Complaint: AMS Time Seen by Provider: 11/04/21 13:10 Source: EMS and RN notes reviewed Mode of arrival: EMS Limitations: altered mental status History of Present Illness HPI narrative: 81-year-old female brought from [facility] via EMS with concerns of altered mental status. Patient seen here yesterday for a fall and has a clavicle fracture. Per EMS group home states patient fell sometime in the middle of the night last night and was not evaluated afterwards. Family arrived at patient's room today and she was still sleeping around 10:00. When family returned patient was still sleeping and they got concerned. Per family there were still pills in the patient's mouth. Patient is more lethargic than she normally was. Patient was then sent to the ER. Related Data Home Medications Medication Instructions Recorded Confirmed levothyroxine 50 mcg tablet 50 mcg PO DAILY 03/24/19 09/15/21 aspirin 81 mg tablet,delayed 81 mg PO DAILY 06/27/19 09/15/21 release (Adult Low Dose Aspirin) donepezil 5 mg tablet 5 mg PO DAILY 06/27/19 09/15/21 losartan 25 mg tablet 25 mg PO DAILY 06/27/19 09/15/21 quetiapine 25 mg tablet 12.5 mg PO DAILY 06/27/19 09/15/21 escitalopram oxalate 5 mg tablet 5 mg PO DAILY 04/22/20 09/15/21 buspirone 5 mg tablet 5 mg PO TID 05/02/21 09/15/21 divalproex 125 mg tablet,delayed tablet PO 11/04/21 release Allergies Allergy/AdvReac Type Severity Reaction Status Date / Time No Known Allergies Allergy Verified 10/03/21 15:32 Review of Systems Review of Systems: Patient with history of Alzheimer's dementia and is not a reliable historian. Patient does deny any pain, shortness of breath. She states that she is just tired at this point. Patient falls asleep quickly but can be aroused with verbal stimulus. [facility] Past Medical History Medical History Acquired hypothyroidism Anxiety BMI 20.0-20.9, adult BMI less than 19,adult Central retinal vein occlusion with macular edema Coronary artery disease Coronary artery disease Dementia Essential hypertension Hyperlipidemia Surgical History Surgical History Displaced fracture of distal end of right radius Status post external fixator placement in Apr 23, 2020 History of appendectomy History of coronary artery bypass graft (~2009) History of laparoscopy With adhesiolysis. History of tonsillectomy Family History Family History Sibling Family history of suicide Family history of malignant neoplasm Patient's sister is Father Malignant neoplasm of prostate Family history of malignant neoplasm Patient's father is Mother Patient's mother is Social History Social History Social History: Surrogate decision maker: Tiny Salas (child) or Dar Mendez (spouse). Code status: Full code. Smoking status: Never smoker Alcohol intake: never Substance use: never Substance use type: does not use Additional living arrangements comments: Resident at [facility]. Gender identity (if verbalized by the patient): Female Spiritual care concerns: No Exam Narrative: GENERAL: Well-appearing, well-nourished, and in no acute distress. HEAD: Normocephalic, atraumatic. EYES: PERRLA and EOMI. ENT: Nares clear, no rhinorrhea or epistaxis. Mucous membranes moist. Bilateral TMs pearly tyler nonbulging NECK: Supple. No adenopathy or masses. No carotid bruits or JVD CHEST: Clear to auscultation. No respiratory distress. No wheezes rales or rhonchi HEART: Regular rate and rhythm. No murmur heard. Normal peripheral pulses. ABDOMEN: Soft, nontender, nondistended, normal
== END 2021-11-04 17:03 ==
PROVIDERS: Emergency Provider Nurse Practitioner Family; PCP Internal Medicine
DX: G30.9 Alzheimer's disease, unspecified (principal); F02.80 Dementia in other diseases classified elsewhere, unspecified severity, without behavioral disturbance, psychotic disturbance, mood disturbance, and anxiety; I25.10 Atherosclerotic heart disease of native coronary artery without angina pectoris; I10 Essential (primary) hypertension; E78.5 Hyperlipidemia, unspecified; E03.9 Hypothyroidism, unspecified; F41.9 Anxiety disorder, unspecified; Z95.1 Presence of aortocoronary bypass graft; Z79.82 Long term (current) use of aspirin; R94.31 Abnormal electrocardiogram [ECG] [EKG]; I49.1 Atrial premature depolarization; M47.812 Spondylosis without myelopathy or radiculopathy, cervical region; I70.0 Atherosclerosis of aorta; W19.XXXA Unspecified fall, initial encounter
CPT/HCPCS: 36415; 70450; 71045; 72125; 74176; 80053; 85025; 93005; 99284

== ENCOUNTER 2021-11-12 09:03 | Emergency (ER) | payer OTHER, SELFPAY ==
[2021-11-12] VITALS (29 sets, daily range): BP systolic 112–159; BP diastolic 56–94; PULSE 73–87; RESP 10–25; TEMP 36.3; O2SAT 77–100
--- NOTE | ~2021-11-12 | XR_ITS ---
XR hip BI 2V w AP pelvis DATE: 11/12/2021 09:49 INDICATION: Fall. Hip injury. TECHNIQUE: AP pelvis. AP and lateral views of each hip. COMPARISON: None FINDINGS: There is osteopenia. Dextroscoliosis and degenerative disc disease of the lumbar spine. The pubic symphysis and sacroiliac joints are normally aligned. No pelvic fracture or bone destruction is detected. No fracture or dislocation, avascular necrosis or bone destruction of either hip is detected. Hip ignacio nt spaces are symmetric and relatively preserved. IMPRESSION: Osteopenia No fracture or dislocation of the pelvis or either hip Reviewed, dictated and finalized at location A.
--- NOTE | ~2021-11-12 | CT_ITS ---
EXAMINATION: CT cervical spine wo con DATE: 11/12/2021 10:06 INDICATION: Fall. Neck pain, tenderness. TECHNIQUE: Computed tomography (CT) of the cervical spine was performed without intravenous contrast. Automated exposure control and iterative reconstruction technique were employed. Exam dose: 113.00 mGy-cm total exam DLP. COMPARISON: 11/04/2021 CT cervical spine FINDINGS: C1 and C2 are normally aligned and the odontoid process is intact. There is moderate degenerative disc disease at C2-3 There is severe degenerative disc disease and stable mild anterolisthesis at C3-4. Moderate degenerative disease at C4-5. Severe degenerative disc disease and stable approximately 2 mm retrolisthesis at C5-6. Severe degenerative disc disease at C6-7. Stable mild anterolisthesis at C7-T1. Severe degenerative disc disease at T1-2. There is degenerative change at the apophyseal joints and uncovertebral joints throughout the cervica l spine. No fracture or dislocation or locked facet or prevertebral soft tissue swelling. IMPRESSION: Cervical spondylosis; no fracture or dislocation or locked facet or prevertebral soft ti ssue swelling or other significant change since 11/04/2021 Fracture of the medial aspect of the right clavicle Reviewed, dictated and finalized at Location A. Reviewed, dictated and finalized at location A. IMPRESSION: Cervical spondylosis; no fracture or dislocation or locked facet o r prevertebral soft tissue swelling or other significant change since 11/04/2021 Fracture of the medial aspect of the right clavicle
--- NOTE | ~2021-11-12 | CT_ITS ---
EXAMINATION: CT thoracic lumbar wo con DATE: 11/12/2021 10:06 INDICATION: Ground-level fall. Back pain. TECHNIQUE: Computed tomography (CT) of the thoracic spine was performed without intravenous contrast. Automated exposure control and iterative reconstruction technique were employed. Exam dose: 566.44 mGy-cm total exam DLP. COMPARISON: None FINDINGS: Degenerative changes are noted throughout the thoracic spine including severe degenerative disc disease particularly at T12-L1, L1-2, L2-3.. There is degenerative spurring throughout the thora cic spine. No fracture or bone destruction of the thoracic spine is detected. IMPRESSION: Degenerative changes of the thoracic spine; no fracture or dislocation or bone destructi on is noted Reviewed, dictated and finalized at Location A. Reviewed, dictated and finalized at location A. IMPRESSION: Degenerative changes of the thoracic spine; no fracture or disloca tion or bone destruction is noted
--- NOTE | ~2021-11-12 | CT_ITS ---
EXAMINATION: CT brain wo con DATE: 11/12/2021 10:05 INDICATION: Ground-level fall, striking head. Patient on blood thinners. TECHNIQUE: Computed tomography (CT) of the head was performed without intravenous contrast. The mA wa s adjusted according to patient size. Iterative reconstruction technique was employed. Exam dose: 60 5.33 mGy-cm total exam DLP. COMPARISON: 11/04/2021 CT brain FINDINGS: There is prominent central and cortical cerebral atrophy. Vertebral artery and bilateral carotid siphon and supraclinoid internal carotid artery calcifications . There is nonspecific diminished attenuation of the cerebral white matter, likely due to chronic sma ll vessel ischemic changes. Mild bilateral basal ganglia calcifications. No intracranial mass lesion or hemorrhage, midline shift or mass effect effect. No subdural or epidur al hematoma is detected. The included paranasal sinuses and mastoid air cells are normally developed and aerated. No fracture or bone destruction of the cranial vault. IMPRESSION: Cerebral atherosclerosis and chronic small vessel ischemic changes of the cerebral white matter Prominent cerebral atrophy No acute intracranial finding Reviewed, dictated and finalized at Location [facility]. Reviewed, dictated and finalized at location A.
--- NOTE | ~2021-11-12 | XR_ITS ---
XR chest 2V DATE: 11/12/2021 09:48 INDICATION: Fall TECHNIQUE: AP and lateral views COMPARISON: 11/04/2021 AP chest FINDINGS: Status post sternotomy. Heart size appears within normal range. There is aortic calcificati on and unfolding. No hilar or mediastinal enlargement is evident. Mild bilateral apical capping. No pulmonary infiltrate or consolidation, pleural effusion or pulmonar y vascular congestion or pneumothorax is detected. Right chronic rotator cuff atrophy. Glenohumeral osteoarthritis is noted at the included right should er. Osteopenia. IMPRESSION: No active cardiac pulmonary disease Aortic atherosclerosis Reviewed, dictated and finalized at location A.
--- NOTE | 2021-11-12 09:31 | ED.FALL ---
HPI - Fall General Chief Complaint: Fall <SUSI De Leon Last Filed: 11/12/21 13:15> Stated Complaint: witnessed GLF, struck head <SUSI De Leon Last Filed: 11/12/21 13:15> Time Seen by Provider: 11/12/21 09:11 <SUSI De Leon Last Filed: 11/12/21 13:15> Source: patient, family and EMS <SUSI De Leon Last Filed: 11/12/21 13:15> Mode of arrival: EMS <SUSI De Leon Last Filed: 11/12/21 13:15> Limitations: dementia <SUSI De Leon Last Filed: 11/12/21 13:15> History of Present Illness HPI Narrative: This is a 81-year-old female that presents to the emergency department after a fall today at her memory care facility. Reportedly patient was witnessed falling while in the dining room this morning. She did not lose consciousness. She is unsure as to why she fell. She did hit her head on a wall. Patient does not report any focal areas of pain. Patient is currently in a c-collar with a contusion noted to the back of the head. Multiple old, healing bruises are noted. Reportedly patient frequently falls. Her daughter is concerned that they may be giving her too many sedating medications. <Jyoti Pham PA-C - Last Filed: 11/12/21 13:15> Related Data Home Medications: Home Medications Medication Instructions Recorded Confirmed levothyroxine 50 mcg tablet 50 mcg PO DAILY 03/24/19 11/08/21 aspirin 81 mg tablet,delayed 81 mg PO DAILY 06/27/19 11/08/21 release (Adult Low Dose Aspirin) donepezil 5 mg tablet 5 mg PO DAILY 06/27/19 11/08/21 losartan 25 mg tablet 25 mg PO DAILY 06/27/19 11/08/21 quetiapine 25 mg tablet 12.5 mg PO DAILY 06/27/19 11/08/21 escitalopram oxalate 5 mg tablet 5 mg PO DAILY 04/22/20 11/08/21 buspirone 5 mg tablet 5 mg PO TID 05/02/21 11/08/21 divalproex 125 mg tablet,delayed tablet PO 11/04/21 11/08/21 release <Jyoti Pham PA-C - Last Filed: 11/12/21 13:15> Allergies/Adverse Reactions: Allergies Allergy/AdvReac Type Severity Reaction Status Date / Time No Known Allergies Allergy Verified 11/08/21 14:16 <Jyoti Pham PA-C - Last Filed: 11/12/21 13:15> Review of Systems Review of Systems: ROS unobtainable: Yes unobtainable due to medical condition (dementia) <Jyoti Pham PA-C - Last Filed: 11/12/21 13:15> [facility] Past Medical History Medical History: Medical History Acquired hypothyroidism Anxiety BMI 20.0-20.9, adult BMI less than 19,adult Central retinal vein occlusion with macular edema Coronary artery disease Coronary artery disease Dementia Essential hypertension Hyperlipidemia <Jyoti Pham PA-C - Last Filed: 11/12/21 13:15> Surgical History Surgical History: Surgical History Displaced fracture of distal end of right radius Status post external fixator placement in Apr 23, 2020 History of appendectomy History of coronary artery bypass graft (~2009) History of laparoscopy With adhesiolysis. History of tonsillectomy <Jyoti Pham PA-C - Last Filed: 11/12/21 13:15> Family History Family History: Family History Sibling Family history of suicide Family history of malignant neoplasm Patient's sister is Father Malignant neoplasm of prostate Family history of malignant neoplasm Patient's father is Mother Patient's mother is <Jyoti Pham PA-C - Last Filed: 11/12/21 13:15> Social History Social History: Social History Social History: Surrogate decision maker: Tiny Salas (child) or Dar Mendez (spouse). Code status: Full code. Smoking status: Never smoker Alcohol intake: never Substance use: never Substance use type: do
--- NOTE | 2021-11-12 10:01 | PC.NURSE ---
Patient off unit to radiology.
[2021-11-12 10:21] LABS: Basophils Percent Auto 0.4 % (0.2-1.2); Eosinophils Percent Auto 0.3 % (0-4.4); Hematocrit 34.8 % (37.0-47.0); Hemoglobin 11.4 g/dL (12.0-15.0); Immature Granulocyte Absolute 0.03 K/mm3 (0.00-0.031); Immature Granulocyte Percent A 0.4 % (0-0.5); Lymphocytes Absolute Auto 1.27 K/mm3 (0.9-3.2); Lymphocytes Percent Auto 18.1 % (18.3-44.2); Mean Corpuscular HGB Conc 32.8 g/dl (32-36); Mean Corpuscular Hemoglobin 32.7 pg (26-34); Mean Corpuscular Volume 99.7 fl (80-100); Mean Platelet Volume 9.7 fl (7.4-10.4); Monocytes Absolute Auto 0.8 K/mm3 (0.1-0.6); Monocytes Percent Auto 11.1 % (2.6-8.5); Neutrophils Absolute Auto 4.9 K/mm3 (1.3-6.7); Neutrophils Percent Auto 69.7 % (45.5-73.1); Platelet Count Result 201 k/mm3 (150-375); Red Blood Count 3.49 M/mm3 (4.2-5.4)
[2021-11-12] MEDS: SODIUM CHLORIDE 0.9% IV 500 ML 999 ML IV CONT (10:23)
[2021-11-12 10:33] LABS: Alanine Aminotransferase 17 U/L (6-35); Albumin Level 3.4 g/dL (3.5-5.1); Alkaline Phosphatase 81 U/L (38-126); Anion Gap 3 mmol/L (8-16); Aspartate Amino Transferase 32 U/L (14-36); Bilirubin,Total 0.8 mg/dL (0.2-1.3); Blood Urea Nitrogen 22 mg/dL (7-17); Calcium 8.4 mg/dL (8.4-10.2); Carbon Dioxide 32 mmol/L (22-30); Chloride 100 mmol/L (98-107); Estimated CRCL calculation 27 ml/min; Estimated Glomerular Filt Rate 60; Glucose 96 mg/dL (65-110); Potassium 3.9 mmol/L (3.4-5.0); Sodium 135 mmol/L (137-145)
[2021-11-12 10:36] LABS: Partial Thromboplastin Time 25.3 SECONDS (22.3-36.8); Prothrombin Time 13.1 Seconds (11.1-14.7)
[2021-11-12 11:03] LABS: Appearance Urine Clear (Clear); Bilirubin Urine Negative (Negative); Color Urine Yellow (Yellow); Glucose Urine UA Negative (Negative); Ketones Urine Trace mg/dL (Negative); Leukocyte Esterase Ur Negative LEU/UL (Negative); Nitrate Urine Negative (Negative); Protein Urine 1+ mg/dL (Negative); pH Urine 7.5 (5.0-9.0)
[2021-11-12 11:08] LABS: Bacteria Urine Trace /hpf; Squamous Epithelial Cell Urine Rare /hpf (Few); WBC Urine 0-3 /hpf
[2021-11-12 11:11] LABS: Add Urine Microscopic? YES; Blood Urine Trace-Intact (Negative)
--- NOTE | 2021-11-12 12:22 | PC.NURSE ---
Patient assisted out of bed by check writer salesperson and ED accounts payable technician. Patient started to ambulate with check writer salesperson and was leaning to her left side a bit. JOEL Christian accounts payable technician went to get a walker for patient to use, patient started walking out of room with check writer salesperson and her daughter to meet Anahi with walker. Patient then ambulated with walker and JOEL Christian tech around the nurses station.
--- NOTE | 2021-11-12 12:36 | PC.NURSE ---
Patient ambulated in hallway with walker and standby assistance. Patient appears to be fairly strong and steady with the walker. EP made aware.
== END 2021-11-12 13:25 ==
PROVIDERS: Physician Assistant; Emergency Provider Emergency Medicine; PCP Internal Medicine
DX: S09.90XA Unspecified injury of head, initial encounter (principal); F03.90 Unspecified dementia, unspecified severity, without behavioral disturbance, psychotic disturbance, mood disturbance, and anxiety; I25.10 Atherosclerotic heart disease of native coronary artery without angina pectoris; I10 Essential (primary) hypertension; E78.5 Hyperlipidemia, unspecified; E03.9 Hypothyroidism, unspecified; F41.9 Anxiety disorder, unspecified; Z95.1 Presence of aortocoronary bypass graft; I70.0 Atherosclerosis of aorta; I67.2 Cerebral atherosclerosis; M47.812 Spondylosis without myelopathy or radiculopathy, cervical region; M85.88 Other specified disorders of bone density and structure, other site; M51.36 Other intervertebral disc degeneration, lumbar region; S42.011D Anterior displaced fracture of sternal end of right clavicle, subsequent encounter for fracture with routine healing; X58.XXXD Exposure to other specified factors, subsequent encounter; W19.XXXA Unspecified fall, initial encounter
CPT/HCPCS: 36415; 51701; 70450; 71046; 72125; 72128; 72131; 73521; 80053; 81001; 85025; 85610; 85730; 96360; 99284; J7040

== ENCOUNTER 2021-12-15 12:07 | Emergency (ER) | payer OTHER, SELFPAY ==
--- NOTE | ~2021-12-15 | CT_ITS ---
EXAMINATION: CT cervical spine wo con DATE: 12/15/2021 13:44 INDICATION: Fall at nursing facility. TECHNIQUE: Computed tomography (CT) of the cervical spine was performed without intravenous contrast. Automated exposure control and iterative reconstruction technique were employed. Exam dose: 91.63 m Gy-cm total exam DLP. COMPARISON: 11/12/2021 CT cervical spine FINDINGS: Prominent cervical and upper thoracic spondylosis is again noted. No fracture or dislocatio n or locked facet or prevertebral soft tissue swelling is detected. IMPRESSION: Cervical and upper thoracic spondylosis; no fracture or dislocation or locked facet No significant change since 11/12/2021. Reviewed, dictated and finalized at Location A. Reviewed, dictated and finalized at location B. IMPRESSION: Cervical and upper thoracic spondylosis; no fracture or dislocatio n or locked facet No significant change since 11/12/2021.
--- NOTE | ~2021-12-15 | CT_ITS ---
EXAMINATION: CT brain wo con DATE: 12/15/2021 13:44 INDICATION: Fall at long-term facility TECHNIQUE: Computed tomography (CT) of the head was performed without intravenous contrast. The mA wa s adjusted according to patient size. Iterative reconstruction technique was employed. Exam dose: 60 5.33 mGy-cm total exam DLP. COMPARISON: 11/12/2021 CT brain FINDINGS: Left vertebral artery and prominent bilateral carotid siphon internal carotid artery calcif ications. Mild bilateral basal ganglia calcifications. There is nonspecific diminished attenuation of the cerebral white matter, likely due to chronic small vessel ischemic changes. There is prominent central and cortical cerebral volume loss. No intracrani al mass lesion or hemorrhage, midline shift or mass effect. No cerebrovascular accident is detected. No subdural or epidural hematoma. No skull fracture or bone destruction. Mastoid air cells and included paranasal sinuses are unremarka ble. IMPRESSION: Central and cortical cerebral atrophy Cerebral atherosclerosis and chronic small vessel ischemic changes of the cerebral white matter No acute intracranial finding or skull fracture Reviewed, dictated and finalized at Location A. Reviewed, dictated and finalized at location B. IMPRESSION: Central and cortical cerebral atrophy Cerebral atherosclerosis and chronic small vessel ischemic changes of the cereb ral white matter No acute intracranial finding or skull fracture
--- NOTE | ~2021-12-15 | XR_ITS ---
XR hip RT min 3V w AP pelvis DATE: 12/15/2021 13:51 INDICATION: Fall. Right hip pain. TECHNIQUE: AP pelvis. AP, lateral and crosstable lateral views of right hip. COMPARISON: None FINDINGS: Osteopenia. DEXA scoliosis and multilevel degenerative disc disease of the lumbar spine. The pubic symphysis and sacroiliac joints are intact. No pelvic fracture or bone destruction is detec claudia. Hip joint spaces are symmetric and relatively preserved. No fracture or dislocation, avascular necrosis or bone destruction of the right hip is detected. IMPRESSION: Osteopenia Dextro scoliosis and multilevel degenerative disc disease of the lumbar spine No pelvic or right hip fracture or dislocation Reviewed, dictated and finalized at location B.
[2021-12-15 12:12] VITALS: BP 128/100; PULSE 61; RESP 20; TEMP 36.2; O2SAT 100
--- NOTE | 2021-12-15 12:51 | ECG_ITS ---
Measurements Intervals [place] Rate: 55 P: 43 [place]: 165 QRS: -5 QRSD: 86 T: 38 QT: 450 QTc: 431 Interpretive Statements SINUS BRADYCARDIA LOW QRS VOLTAGE IN PRECORDIAL LEADS CONSIDER INFERIOR INFARCT, AGE INDETERMINATE ANTEROSEPTAL INFARCT, AGE INDETERMINATE BASELINE ARTIFACT- I, II, III, AVR, AVL, AVF ABNORMAL ECG Electronically Signed On 12-15-2021 16:21:36 CDT by Reggie Wise D.O.
--- NOTE | 2021-12-15 12:59 | ED.FALL ---
HPI - Fall General Chief Complaint: Fall Stated Complaint: GLF R HIP PAIN Time Seen by Provider: 12/15/21 12:18 Source: EMS and RN notes reviewed Mode of arrival: EMS Limitations: dementia History of Present Illness HPI Narrative: 81 years old white female brought to the emergency room by ambulance, found laying down on the floor in supine position after unwitnessed fall. History of severe dementia, possible right hip pain. Related Data Home Medications Medication Instructions Recorded Confirmed levothyroxine 50 mcg tablet 50 mcg PO DAILY 03/24/19 11/17/21 aspirin 81 mg tablet,delayed 81 mg PO DAILY 06/27/19 11/17/21 release (Adult Low Dose Aspirin) donepezil 5 mg tablet 5 mg PO DAILY 06/27/19 11/17/21 losartan 25 mg tablet 25 mg PO DAILY 06/27/19 11/17/21 escitalopram oxalate 5 mg tablet 5 mg PO DAILY 04/22/20 11/17/21 buspirone 5 mg tablet 5 mg PO TID 05/02/21 11/17/21 quetiapine 25 mg tablet 25 mg PO QHS 11/17/21 11/17/21 Allergies Allergy/AdvReac Type Severity Reaction Status Date / Time No Known Allergies Allergy Verified 11/17/21 15:26 Review of Systems Review of Systems: ROS unobtainable: Yes unobtainable due to medical condition and unobtainable due to mental status PMFSH Past Medical History Medical History Acquired hypothyroidism Anxiety BMI 20.0-20.9, adult BMI less than 19,adult Central retinal vein occlusion with macular edema Coronary artery disease Coronary artery disease Dementia Essential hypertension Hyperlipidemia Surgical History Surgical History Displaced fracture of distal end of right radius Status post external fixator placement in Apr 23, 2020 History of appendectomy History of coronary artery bypass graft (~2009) History of laparoscopy With adhesiolysis. History of tonsillectomy Family History Family History Sibling Family history of suicide Family history of malignant neoplasm Patient's sister is Father Malignant neoplasm of prostate Family history of malignant neoplasm Patient's father is Mother Patient's mother is Social History Social History Social History: Surrogate decision maker: Tiny Morelandton (child) or Dar Mendez (spouse). Code status: Full code. Smoking status: Never smoker Alcohol intake: never Substance use: never Substance use type: does not use Additional living arrangements comments: Resident at [facility]. Gender identity (if verbalized by the patient): Female Spiritual care concerns: No Exam Narrative: General appearance: Well-developed, malnourished, Skin: Normal color Head: Normocephalic, nontraumatic Eyes: Clear conjunctiva ENT: Oropharynx normal, ears normal, nose normal Neck: Supple, nontender Chest and respiratory: Airway patent, no respiratory distress, no accessory muscle use Heart: Regular rate/rhythm Abdomen: Soft, nontender, no organomegaly, quiet bowel sounds Vascular: Normal peripheral pulses, normal capillary refill. Musculoskeletal: Normal range of motion, nontender back Neurologic: Alert and disoriented x3 Course Vital Signs Vital signs: Vital Signs Temperature 36.2 C L 12/15/21 12:12 Pulse Rate 61 12/15/21 12:12 Respiratory Rate 20 12/15/21 12:12 Blood Pressure 128/100 H 12/15/21 12:12 Pulse Oximetry 100 12/15/21 12:12 Temperature 36.2 C L 12/15/21 12:12 Pulse Rate 61 12/15/21 12:12 Respiratory Rate 20 07
[2021-12-15] MEDS: LORazepam INJ (*CRX) 2 MG/ML VIAL 1 MG IV PUSH (13:02)
[2021-12-15 14:11] LABS: Basophils Percent Auto 0.4 % (0.2-1.2); Eosinophils Absolute Auto 0.1 K/mm3 (0-0.3); Eosinophils Percent Auto 0.9 % (0-4.4); Hematocrit 38.7 % (37.0-47.0); Hemoglobin 12.5 g/dL (12.0-15.0); Immature Granulocyte Absolute 0.01 K/mm3 (0.00-0.031); Immature Granulocyte Percent A 0.2 % (0-0.5); Lymphocytes Absolute Auto 1.78 K/mm3 (0.9-3.2); Lymphocytes Percent Auto 31.4 % (18.3-44.2); Mean Corpuscular HGB Conc 32.3 g/dl (32-36); Mean Corpuscular Hemoglobin 32.7 pg (26-34); Mean Corpuscular Volume 101.3 fl (80-100); Mean Platelet Volume 10.3 fl (7.4-10.4); Monocytes Absolute Auto 0.6 K/mm3 (0.1-0.6); Monocytes Percent Auto 10.6 % (2.6-8.5); Neutrophils Absolute Auto 3.2 K/mm3 (1.3-6.7); Neutrophils Percent Auto 56.5 % (45.5-73.1); Platelet Count Result 189 k/mm3 (150-375); Red Blood Count 3.82 M/mm3 (4.2-5.4); Red Cell Distribution Width 13.3 % (11.5-14.5); White Blood Count 5.7 K/mm3 (4.5-10.0)
[2021-12-15 14:22] LABS: Alanine Aminotransferase 13 U/L (6-35); Albumin Level 3.6 g/dL (3.5-5.1); Alkaline Phosphatase 142 U/L (38-126); Anion Gap 4 mmol/L (8-16); Aspartate Amino Transferase 31 U/L (14-36); Bilirubin,Total 0.5 mg/dL (0.2-1.3); Blood Urea Nitrogen 23 mg/dL (7-17); Calcium 8.5 mg/dL (8.4-10.2); Carbon Dioxide 31 mmol/L (22-30); Chloride 102 mmol/L (98-107); Estimated CRCL calculation 27 ml/min; Estimated Glomerular Filt Rate 53; Glucose 89 mg/dL (65-110); Potassium 3.7 mmol/L (3.4-5.0); Sodium 137 mmol/L (137-145)
[2021-12-15 14:24] LABS: Prothrombin Time 12.9 Seconds (11.1-14.7)
[2021-12-15 14:25] LABS: Partial Thromboplastin Time 24.5 SECONDS (22.3-36.8)
[2021-12-15 14:27] LABS: Appearance Urine Slightly Cloudy (Clear); Bilirubin Urine Negative (Negative); Blood Urine Trace-lysed (Negative); Glucose Urine UA Negative (Negative); Ketones Urine Negative (Negative); Leukocyte Esterase Ur 2+ LEU/UL (Negative); Nitrate Urine Positive (Negative); Protein Urine Trace mg/dL (Negative); Specific Grav Ur 1.015 (1.001-1.035); pH Urine 7.5 (5.0-9.0)
[2021-12-15 14:29] LABS: Add Urine Microscopic? YES; Color Urine Light Yellow (Yellow)
[2021-12-15 14:34] LABS: Troponin I < 0.012 ng/mL (0.000-0.034)
[2021-12-15 14:57] LABS: Bacteria Urine Trace /hpf; Mucus Urine Rare /lpf; WBC Urine >75 /hpf
[2021-12-15 15:33] VITALS: BP 115/65; PULSE 56; RESP 18; O2SAT 98
== END 2021-12-15 15:35 ==
PROVIDERS: Emergency Provider Emergency Medicine; PCP Internal Medicine
DX: S70.01XA Contusion of right hip, initial encounter (principal); E03.9 Hypothyroidism, unspecified; I25.10 Atherosclerotic heart disease of native coronary artery without angina pectoris; F03.90 Unspecified dementia, unspecified severity, without behavioral disturbance, psychotic disturbance, mood disturbance, and anxiety; I10 Essential (primary) hypertension; E78.5 Hyperlipidemia, unspecified; F41.9 Anxiety disorder, unspecified; Z95.1 Presence of aortocoronary bypass graft; I67.2 Cerebral atherosclerosis; M47.812 Spondylosis without myelopathy or radiculopathy, cervical region; M47.814 Spondylosis without myelopathy or radiculopathy, thoracic region; M51.36 Other intervertebral disc degeneration, lumbar region; R00.1 Bradycardia, unspecified; R94.31 Abnormal electrocardiogram [ECG] [EKG]; Z79.82 Long term (current) use of aspirin; R82.998 Other abnormal findings in urine
CPT/HCPCS: 36415; 70450; 72125; 73502; 80053; 81001; 84484; 85025; 85610; 85730; 87077; 87086; 87186; 93005; 96374; 96375; 99284; J2060

== ENCOUNTER 2021-12-16 12:52 | Emergency (ER) | payer OTHER, SELFPAY ==
--- NOTE | ~2021-12-16 | XR_ITS ---
EXAMINATION: XR chest 1V DATE: 12/16/2021 15:12 INDICATION: Chest pain. Fall. TECHNIQUE: A single frontal view of the chest was obtained. COMPARISON: Chest 2 views 11/12/2021 FINDINGS: There is mild scarring at the lung apices. A calcified right lung nodule is consistent with old granulomatous disease. No pleural effusion or pneumothorax. The heart size is normal. Median cathi rnotomy wires and mediastinal surgical clips are seen, likely from prior coronary artery bypass graft ing. IMPRESSION: 1. Stable mild scarring at the lung apices. Reviewed, dictated and finalized at location A.
--- NOTE | ~2021-12-16 | CT_ITS ---
EXAMINATION: CT cervical spine wo con DATE: 12/16/2021 15:06 INDICATION: Neck injury. TECHNIQUE: Computed tomography (CT) of the cervical spine was performed without intravenous contrast. Automated exposure control and iterative reconstruction technique were employed. The dose-length pro duct was 89.98 mGy-cm. COMPARISON: CT cervical spine 12/15/21 FINDINGS: There is mild scarring at the lung apices. There is 2 mm anterolisthesis of C3 on C4, 2 mm retrolisthesis of C5 on C6, and 2 mm anterolisthesis of C7 on T1. Vertebral body heights are normal. There is mildly decreased disc height at C2-C3, severely decreased disc height at C3-C4, moderately d ecreased disc height at C4-C5, and severely decreased disc height at C5-C6 and C6-C7. The following d isc levels are specifically discussed: C2-C3: There is severe right and moderate left uncovertebral joint osteoarthritis. There is moderate right and mild left facet joint osteoarthritis. There is mild right neural foraminal stenosis. There is no central canal stenosis. C3-C4: There is severe bilateral uncovertebral joint osteoarthritis. There is severe bilateral facet joint osteoarthritis. There is mild bilateral neural foraminal stenosis. There is mild central canal stenosis. C4-C5: There is moderate left uncovertebral joint osteoarthritis. There is moderate right and severe left facet joint osteoarthritis. There is mild left neural foraminal stenosis. There is mild central canal stenosis. C5-C6: There is severe right and moderate left uncovertebral joint osteoarthritis. There is moderate right and mild left facet joint osteoarthritis. There is mild bilateral neural foraminal stenosis. Th ere is mild central canal stenosis. C6-C7: There is mild right and severe left uncovertebral joint osteoarthritis. There is moderate righ t and mild left facet joint osteoarthritis. There is mild left neural foraminal stenosis. There is mi ld central canal stenosis. C7-T1: There is no uncovertebral joint osteoarthritis. There is severe bilateral facet joint osteoart hritis. There is mild bilateral neural foraminal stenosis. There is no central canal stenosis. IMPRESSION: 1. No fracture. 2. Severe cervical spondylosis. Reviewed, dictated and finalized at location A.
--- NOTE | ~2021-12-16 | CT_ITS ---
EXAMINATION: CT brain wo con DATE: 12/16/2021 15:06 INDICATION: Patient fell out of wheelchair, found on the floor by staff. Headache. TECHNIQUE: Computed tomography (CT) of the head was performed without intravenous contrast. The mA wa s adjusted according to patient size. Iterative reconstruction technique was employed. Exam dose: 60 5.33 mGy-cm total exam DLP. COMPARISON: None FINDINGS: Left vertebral and prominent bilateral carotid siphon internal carotid artery calcification s. There is nonspecific diminished attenuation of the cerebral white matter, likely due to chronic small vessel ischemic changes. Bilateral basal ganglia calcifications. There is prominent central and cortical cerebral atrophy. No subdural or epidural hematoma. No fracture or bone destruction of the cranial vault. Included paranasal sinuses and mastoid air ce lls are normally developed and aerated. IMPRESSION: Cerebral atherosclerosis and chronic small vessel ischemic changes of the cerebral white matter Prominent atrophy No acute intracranial abnormality or skull fracture Reviewed, dictated and finalized at [facility]. Reviewed, dictated and finalized at location [facility].
[2021-12-16 12:57] VITALS: BP 144/90; PULSE 56; RESP 20; TEMP 36.7; O2SAT 100
[2021-12-16] MEDS: LORazepam INJ (*CRX) 2 MG/ML VIAL 1 MG IM (13:31)
--- NOTE | 2021-12-16 14:45 | ECG_ITS ---
Measurements Intervals [place] Rate: 68 P: 30 [place]: 151 QRS: -14 QRSD: 85 T: 42 QT: 405 QTc: 433 Interpretive Statements SINUS RHYTHM CONSIDER ANTERIOR INFARCT, AGE INDETERMINATE INFERIOR INFARCT, AGE INDETERMINATE BASELINE ARTIFACT- I, II, III, AVR, AVL, AVF, V1-V6 ABNORMAL ECG Electronically Signed On 12-16-2021 16:50:14 CDT by Reggie Wise D.O.
[2021-12-16 15:00] VITALS: BP 145/70; PULSE 85; RESP 16; O2SAT 98
[2021-12-16 15:34] LABS: Basophils Percent Auto 0.3 % (0.2-1.2); Eosinophils Percent Auto 0.5 % (0-4.4); Hematocrit 38.8 % (37.0-47.0); Hemoglobin 12.8 g/dL (12.0-15.0); Immature Granulocyte Absolute 0.02 K/mm3 (0.00-0.031); Immature Granulocyte Percent A 0.3 % (0-0.5); Lymphocytes Absolute Auto 1.29 K/mm3 (0.9-3.2); Lymphocytes Percent Auto 21.2 % (18.3-44.2); Mean Corpuscular Hemoglobin 33.1 pg (26-34); Mean Corpuscular Volume 100.3 fl (80-100); Mean Platelet Volume 10.4 fl (7.4-10.4); Monocytes Absolute Auto 0.6 K/mm3 (0.1-0.6); Neutrophils Absolute Auto 4.2 K/mm3 (1.3-6.7); Neutrophils Percent Auto 68.7 % (45.5-73.1); Platelet Count Result 187 k/mm3 (150-375); Red Blood Count 3.87 M/mm3 (4.2-5.4); Red Cell Distribution Width 13.1 % (11.5-14.5); White Blood Count 6.1 K/mm3 (4.5-10.0)
[2021-12-16 15:43] LABS: Appearance Urine Slightly Cloudy (Clear); Bilirubin Urine Negative (Negative); Blood Urine 1+ (Negative); Color Urine Yellow (Yellow); Glucose Urine UA Negative (Negative); Ketones Urine 1+ mg/dL (Negative); Leukocyte Esterase Ur 2+ LEU/UL (Negative); Nitrate Urine Positive (Negative); Protein Urine 1+ mg/dL (Negative); pH Urine 6.5 (5.0-9.0)
[2021-12-16 15:46] LABS: Bacteria Urine Trace /hpf; Mucus Urine Rare /lpf; Squamous Epithelial Cell Urine Rare /hpf (Few); WBC Urine >75 /hpf
[2021-12-16 15:47] LABS: Add Urine Microscopic? YES; Alanine Aminotransferase 13 U/L (6-35); Albumin Level 3.3 g/dL (3.5-5.1); Alkaline Phosphatase 125 U/L (38-126); Anion Gap 3 mmol/L (8-16); Aspartate Amino Transferase 31 U/L (14-36); Bilirubin,Total 0.6 mg/dL (0.2-1.3); Blood Urea Nitrogen 21 mg/dL (7-17); Calcium 8.2 mg/dL (8.4-10.2); Carbon Dioxide 30 mmol/L (22-30); Chloride 101 mmol/L (98-107); Estimated CRCL calculation 33 ml/min; Estimated Glomerular Filt Rate > 60; Glucose 100 mg/dL (65-110); Potassium 3.8 mmol/L (3.4-5.0); Sodium 134 mmol/L (137-145)
--- NOTE | 2021-12-16 15:54 | ED.FALL ---
HPI - Fall General Chief Complaint: Fall Stated Complaint: GLF WHEELCHAIR TO GROUND Source: EMS, RN notes reviewed and old records reviewed Mode of arrival: EMS Limitations: dementia History of Present Illness HPI Narrative: This is an 81 year old female who presents for evaluation of an unwitnessed ground level fall. EMS states patient had unwitnessed fall out of her wheelchair to the floor. They report patient was complaining of headache but she denies neck pain or back pain. It is reported that patient is oriented x 1. EMS did not notice any signs of trauma. Patient is some what agitated. She is unable to given me history. Related Data Home Medications Medication Instructions Recorded Confirmed levothyroxine 50 mcg tablet 50 mcg PO DAILY 03/24/19 11/17/21 aspirin 81 mg tablet,delayed 81 mg PO DAILY 06/27/19 11/17/21 release (Adult Low Dose Aspirin) donepezil 5 mg tablet 5 mg PO DAILY 06/27/19 11/17/21 losartan 25 mg tablet 25 mg PO DAILY 06/27/19 11/17/21 escitalopram oxalate 5 mg tablet 5 mg PO DAILY 04/22/20 11/17/21 buspirone 5 mg tablet 5 mg PO TID 05/02/21 11/17/21 quetiapine 25 mg tablet 25 mg PO QHS 11/17/21 11/17/21 Allergies Allergy/AdvReac Type Severity Reaction Status Date / Time No Known Allergies Allergy Verified 12/16/21 14:34 Review of Systems Review of Systems: ROS unobtainable: Yes other (due to dementia) [facility] Past Medical History Medical History Acquired hypothyroidism Anxiety BMI 20.0-20.9, adult BMI less than 19,adult Central retinal vein occlusion with macular edema Coronary artery disease Coronary artery disease Dementia Essential hypertension Hyperlipidemia Surgical History Surgical History Displaced fracture of distal end of right radius Status post external fixator placement in Apr 23, 2020 History of appendectomy History of coronary artery bypass graft (~2009) History of laparoscopy With adhesiolysis. History of tonsillectomy Family History Family History Sibling Family history of suicide Family history of malignant neoplasm Patient's sister is Father Malignant neoplasm of prostate Family history of malignant neoplasm Patient's father is Mother Patient's mother is Social History Social History Social History: Surrogate decision maker: Tiny Salas (child) or Dar Mendez (spouse). Code status: Full code. Smoking status: Never smoker Alcohol intake: never Substance use: never Substance use type: does not use Additional living arrangements comments: Resident at [facility]. Gender identity (if verbalized by the patient): Female Spiritual care concerns: No Exam Const: General: alert Nutritional Appearance: thin Limitations: behavioral limitations Other: patient is pulling cords out of wall, she will answer some questions yes and know. she is singing HENMT: Head: normal to inspection General nose exam: Normal external nose present Face and sinus: normal facial exam Eyes: Pupils: Equal, round and reactive pupils present EOM: EOMs intact bilaterally Resp: Effort & Inspection: normal respiratory effort Auscultation: clear to auscultation bilaterally Cardio: Rate: regular rate Rhythm: regular rhythm Heart sounds: no murmurs Back/Spine/Pelvis: Back: no CVA tenderness Skin: General skin exam: normal color Rashes: no rashes Neuro: General: moves all extremities Extrem: General: no pedal edema Psych: Affect: Anxious affect present Other: agitated, attempted to bite me Course Reevaluation(s) Reevaluation #1: Patient is moving all extremities. No acute injury on xray. Will sent back to detention. Date:
[2021-12-16] MEDS: cefTRIAXone 1 GM VIAL IM (16:24)
[2021-12-16] MEDS: LIDOCAINE HCL 1% LOCAL INJ 20 ML VIAL (16:25)
[2021-12-16 16:35] VITALS: BP 144/70; PULSE 75; RESP 20; O2SAT 97
[2021-12-16 17:00] VITALS: BP 139/78; PULSE 81; RESP 16; O2SAT 97
[2021-12-16 17:35] VITALS: BP 136/78; PULSE 74; RESP 16; O2SAT 97
== END 2021-12-16 18:03 ==
PROVIDERS: Emergency Provider General Practice; PCP Internal Medicine
DX: Z04.3 Encounter for examination and observation following other accident (principal); N39.0 Urinary tract infection, site not specified; E03.9 Hypothyroidism, unspecified; I25.10 Atherosclerotic heart disease of native coronary artery without angina pectoris; I10 Essential (primary) hypertension; F03.90 Unspecified dementia, unspecified severity, without behavioral disturbance, psychotic disturbance, mood disturbance, and anxiety; E78.5 Hyperlipidemia, unspecified; H34.10 Central retinal artery occlusion, unspecified eye; Z95.1 Presence of aortocoronary bypass graft; I67.2 Cerebral atherosclerosis; M47.812 Spondylosis without myelopathy or radiculopathy, cervical region; W05.0XXA Fall from non-moving wheelchair, initial encounter
CPT/HCPCS: 36415; 51701; 70450; 71045; 72125; 80053; 81001; 85025; 87077; 87086; 87186; 93005; 96372; 99284; J0696; J2060

== ENCOUNTER 2021-12-17 11:30 | Observation (INO) | payer OTHER, SELFPAY ==
--- NOTE | ~2021-12-17 | XR_ITS ---
XR lumbar spine 2-3V 12/17/2021 13:47 Indication: Low back pain. Confusion. Patient is combative. Procedure: 3 views lumbar spine Comparison: No prior studies for comparison. Findings: There is levoscoliosis of the lumbar spine centered at L1. There is moderate multilevel deg enerative disc disease with disc narrowing and endplate degenerative change at all lumbar levels. The re is moderate lower lumbar facet hypertrophy. No acute fracture or traumatic malalignment. There is atherosclerosis of the aorta. Impression: 1: Moderate lumbar spondylosis with levoscoliosis. Reviewed, dictated and finalized at location [facility]. Impression: 1: Moderate lumbar spondylosis with levoscoliosis.
--- NOTE | ~2021-12-17 | CT_ITS ---
EXAMINATION: CT cervical spine wo con DATE: 12/17/2021 13:14 INDICATION: Neck pain after fall TECHNIQUE: Computed tomography (CT) of the cervical spine was performed without intravenous contrast. The dose-length product was 111 mGy-cm. Automated exposure control and iterative reconstruction tech [employer] were employed. COMPARISON: CT dated 12/16/[address] dated 12/15/2021 FINDINGS: There is intracranial atherosclerosis. There is degenerative disc disease at all cervical s pine levels. There is degenerative anterolisthesis at C7-T1. Odontoid process is normal. There is mod erate multilevel uncinate and facet hypertrophy. There is atherosclerosis of the carotid arteries. Th ere is scarring at the lung apices. Vertebral body heights are maintained. Craniovertebral junction i s normal. There are likely chronic spinous process fractures of T2 and T3. IMPRESSION: 1. Likely chronic spinous process fractures of T2 and T3. 2: Severe cervical spondylosis. Reviewed, dictated and finalized at location A.
--- NOTE | ~2021-12-17 | XR_ITS ---
XR abdomen/kub 1V 12/17/2021 13:47 Indication: Status post fall. Confusion. Procedure: KUB Comparison: No prior studies for comparison. Findings: Bowel gas pattern is nonobstructive. There is atherosclerosis. There is severe thoracic and lumbar spondylosis. Moderate colonic fecal loading. No pneumatosis. Impression: 1: Nonobstructive bowel gas pattern. Reviewed, dictated and finalized at location A. Impression: 1: Nonobstructive bowel gas pattern.
--- NOTE | ~2021-12-17 | XR_ITS ---
XR thoracic spine 3V 12/17/2021 13:47 Indication: Back pain after fall Procedure: 3 views of the thoracic spine Comparison: CT dated 11/12/2021 Findings: There is accentuated thoracic kyphosis. There is mild-moderate multilevel degenerative disc disease. There is dextroscoliosis. There are median sternotomy wires from previous CABG. There is at herosclerosis. No acute fracture or traumatic malalignment. Impression: 1: No acute abnormality of the thoracic spine. Reviewed, dictated and finalized at location A. Impression: 1: No acute abnormality of the thoracic spine.
--- NOTE | ~2021-12-17 | XR_ITS ---
XR pelvis 1-2V 12/17/2021 13:47 Indication: Status post fall. Pelvic pain. Procedure: AP pelvis Comparison: 12/16/2011 Findings: Pelvic rings are intact. There is osteitis pubis. There is moderate lower lumbar spondylosi s. Sacral foramen are symmetric. The left femur is rotated internally. No acute fracture or traumatic malalignment. Impression: 1: No acute fracture. Reviewed, dictated and finalized at location A. Impression: 1: No acute fracture.
--- NOTE | ~2021-12-17 | CT_ITS ---
EXAMINATION: CT brain wo con DATE: 12/17/2021 13:14 INDICATION: Status post fall. Transient alteration of awareness. TECHNIQUE: Computed tomography (CT) of the head was performed without intravenous contrast. The dose- length product was 605.33 mGy-cm. Automated exposure control and iterative reconstruction technique w ere employed. COMPARISON: CT dated 12/16/2021 FINDINGS: Generalized atrophy. There are scattered moderate periventricular and subcortical white mat ter changes, most likely related to small vessel ischemic disease (microangiopathy). No acute intracr anial hemorrhage, infarction, mass or mass effect. Paranasal sinuses and mastoids are pneumatized. No depressed skull fractures. Chronic right parietal infarction. IMPRESSION: 1. No acute intracranial abnormality. 2: Chronic right parietal infarction. 3: Chronic age-related findings. Reviewed, dictated and finalized at location A.
[2021-12-17 11:32] VITALS: BP 124/52; PULSE 72; RESP 16; TEMP 36.4; O2SAT 100
[2021-12-17] MEDS: HALOPERIDOL LACTATE 5 MG/ML VIAL IM (12:06)
--- NOTE | 2021-12-17 12:41 | ED.FALL ---
HPI - Fall General Chief Complaint: Fall Stated Complaint: glf, upon standing hit head on wall Time Seen by Provider: 12/17/21 12:17 Source: EMS and RN notes reviewed Mode of arrival: EMS Limitations: dementia History of Present Illness HPI Narrative: 81 years old white female came by ambulance from memory care unit because of a fall and possible head injury. No loss of consciousness, today is the third day in a row to come to our emergency room for the same problem. After talking to the staff of the memory care unit I found out that patient been having fall 4 months got worse over the last 2 months. Also she have recent fracture of the right clavicle and she refused to use sling. Also patient used to be on Depakote 125 mg twice a day increased to 250 mg twice a day over the last 2 months. Also her Seroquel increased recently. Family thinking about possible hospice. Related Data Home Medications Medication Instructions Recorded Confirmed levothyroxine 50 mcg tablet 50 mcg PO DAILY 03/24/19 11/17/21 aspirin 81 mg tablet,delayed 81 mg PO DAILY 06/27/19 11/17/21 release (Adult Low Dose Aspirin) donepezil 5 mg tablet 5 mg PO DAILY 06/27/19 11/17/21 losartan 25 mg tablet 25 mg PO DAILY 06/27/19 11/17/21 escitalopram oxalate 5 mg tablet 5 mg PO DAILY 04/22/20 11/17/21 buspirone 5 mg tablet 5 mg PO TID 05/02/21 11/17/21 quetiapine 25 mg tablet 25 mg PO QHS 11/17/21 11/17/21 Allergies Allergy/AdvReac Type Severity Reaction Status Date / Time No Known Allergies Allergy Verified 12/16/21 14:34 Review of Systems Review of Systems: ROS unobtainable: Yes unobtainable due to mental status PMFSH Past Medical History Medical History Acquired hypothyroidism Anxiety BMI 20.0-20.9, adult BMI less than 19,adult Central retinal vein occlusion with macular edema Coronary artery disease Coronary artery disease Dementia Essential hypertension Hyperlipidemia Surgical History Surgical History Displaced fracture of distal end of right radius Status post external fixator placement in Apr 23, 2020 History of appendectomy History of coronary artery bypass graft (~2009) History of laparoscopy With adhesiolysis. History of tonsillectomy Family History Family History Sibling Family history of suicide Family history of malignant neoplasm Patient's sister is Father Malignant neoplasm of prostate Family history of malignant neoplasm Patient's father is Mother Patient's mother is Social History Social History Social History: Surrogate decision maker: Tiny Salas (child) or Dar Mendez (spouse). Code status: Full code. Smoking status: Never smoker Alcohol intake: never Substance use: never Substance use type: does not use Additional living arrangements comments: Resident at [facility]. Gender identity (if verbalized by the patient): Female Spiritual care concerns: No Exam Narrative: General appearance: Underweight, restless, screaming and singing at the same time Skin: Normal color Head: Normocephalic, nontraumatic Eyes: Clear conjunctiva ENT: Oropharynx normal, ears normal, nose normal Neck: Supple, nontender Chest and respiratory: Airway patent, no respiratory distress, no accessory muscle use Heart: Regular rate/rhythm Abdomen: Soft, nontender, no organomegaly, quiet bowel sounds Vascular: Normal peripheral pulses, normal capillary refill. Musculoskeletal: Normal range of motion, nontender back Neurologic: Disoriented x4
--- NOTE | 2021-12-17 12:42 | ECG_ITS ---
Measurements Intervals [place] Rate: 67 P: 48 WI: 151 QRS: -24 QRSD: 88 T: 41 QT: 429 QTc: 454 Interpretive Statements SINUS RHYTHM CANNOT RULE OUT SEPTAL INFARCT, AGE INDETERMINATE INFERIOR INFARCT, AGE INDETERMINATE BASELINE ARTIFACT- AVR, AVL ABNORMAL ECG Electronically Signed On 12-17-2021 17:00:52 CDT by Reggie Wise D.O.
[2021-12-17] MEDS: SODIUM CHLORIDE 0.9% IV 1,000 ML 500 ML IV CONT (12:58)
[2021-12-17 13:02] LABS: Basophils Percent Auto 0.4 % (0.2-1.2); Eosinophils Percent Auto 0.2 % (0-4.4); Hematocrit 38.7 % (37.0-47.0); Hemoglobin 12.6 g/dL (12.0-15.0); Immature Granulocyte Absolute 0.01 K/mm3 (0.00-0.031); Immature Granulocyte Percent A 0.2 % (0-0.5); Lymphocytes Absolute Auto 1.17 K/mm3 (0.9-3.2); Lymphocytes Percent Auto 21.2 % (18.3-44.2); Mean Corpuscular HGB Conc 32.6 g/dl (32-36); Mean Corpuscular Hemoglobin 32.7 pg (26-34); Mean Corpuscular Volume 100.5 fl (80-100); Mean Platelet Volume 10.7 fl (7.4-10.4); Monocytes Absolute Auto 0.6 K/mm3 (0.1-0.6); Monocytes Percent Auto 10.1 % (2.6-8.5); Neutrophils Absolute Auto 3.8 K/mm3 (1.3-6.7); Neutrophils Percent Auto 67.9 % (45.5-73.1); Platelet Count Result 180 k/mm3 (150-375); Red Blood Count 3.85 M/mm3 (4.2-5.4); Red Cell Distribution Width 13.2 % (11.5-14.5); White Blood Count 5.5 K/mm3 (4.5-10.0)
[2021-12-17 13:11] LABS: Alanine Aminotransferase 15 U/L (6-35); Albumin Level 3.4 g/dL (3.5-5.1); Alkaline Phosphatase 128 U/L (38-126); Anion Gap 2 mmol/L (8-16); Aspartate Amino Transferase 45 U/L (14-36); Bilirubin,Total 0.5 mg/dL (0.2-1.3); Blood Urea Nitrogen 23 mg/dL (7-17); Calcium 8.3 mg/dL (8.4-10.2); Carbon Dioxide 31 mmol/L (22-30); Chloride 103 mmol/L (98-107); Estimated Glomerular Filt Rate 53; Glucose 98 mg/dL (65-110); Lipase 54 U/L (23-300); Potassium 3.9 mmol/L (3.4-5.0); Sodium 136 mmol/L (137-145)
[2021-12-17 13:23] LABS: Troponin I < 0.012 ng/mL (0.000-0.034)
[2021-12-17 14:51] LABS: Valproic Acid 25.6 ug/mL (50-120)
[2021-12-17 14:52] LABS: SARS-CoV-2 RNA PCR Negative
--- NOTE | 2021-12-17 15:28 | PM.IMHP ---
H&P: HPI History of Present Illness Date/Time: 12/17/21 15:15 Chief Complaint: Recurrent GLF's Narrative: This 81 year old female patient with significant PMH of hypothyroidism, Anxiety, CAD, Dementia, HTN, HLD, macular degeneration and repeated Ground level falls who resides at [facility] for the past two years presents to the ER via EMS for the third time in three days. She had sustained a GLF on the first ER evaluation and was found to be without acute injury, yesterday she was evaluated a second time for AMS and was found to have a UTI. She was started on Cefuroxime, today being day #2 of that abx and then today she sustained a GLF again at the skilled nursing, hitting her head, without any LOC. She was brought here to the ER for evaluation. Imaging here in ED shows chronic findings only and no acute findings on CT of head, C-spine, thoracic or lumbar spine and there were also no acute findings on imaging of abdomen and pelvis. Her labs are all unremarkable including her CBC, CMP, Troponin and Lipase. The ER physician spoke to the PCP at the [facility] where the patient resides and was advised that the pt. had a recent right clavicle fracture that she refused to wear the sling for. In addition, the pt's depakote dosage increased from 125 mg to 250 mg and her Seroquel did as well. Her Depakote level here was subtherapeutic. Pt. required Haldol 5 mg to calm her upon arrival. She is a very high fall risk and the skilled nursing did not know that they could provide her with adequate care anymore. She is being admitted to hospitalist service at this time for further monitoring and for placement. Urine culture from 12/15/21 has resulted and is growing E.coli, sensitive to Cefuroxime that she is taking. Repeat urine culture from yesterday is still pending. We will continue to dose her Cefuroxime here in hospital during this admission and will consult care coordination. The pt. is confused. She is alert and oriented to self only despite re-direction. She is resting and does not have any signs of acute distress noted at this point. Review of Systems Review of Systems: ROS unobtainable: Yes unobtainable due to mental status PMFSH Past Medical History Medical History Acquired hypothyroidism Anxiety BMI 20.0-20.9, adult BMI less than 19,adult Central retinal vein occlusion with macular edema Coronary artery disease Coronary artery disease Dementia Essential hypertension Hyperlipidemia Surgical History Surgical History Displaced fracture of distal end of right radius Status post external fixator placement in Apr 23, 2020 History of appendectomy History of coronary artery bypass graft (~2009) History of laparoscopy With adhesiolysis. History of tonsillectomy Family History Family History Sibling Family history of suicide Family history of malignant neoplasm Patient's sister is Father Malignant neoplasm of prostate Family history of malignant neoplasm Patient's father is Mother Patient's mother is Social History Social History Social History: Surrogate decision maker: Tiny Salas (child) or Dar Mendez (spouse). Code status: Full code. Smoking status: Never smoker Alcohol intake: never Substance use: never Substance use type: does not use Additional living arrangements comments: Resident at [facility]. Gender identity (if verbalized by the patient): Female Spiritual care concerns: No Meds Home Medications and Allergies Home Medications Medication Instructions Recorded Confirmed Type levothyroxine 50 mcg tablet 50 mcg PO DAILY 03/24/19 11/17/21 History hydrochlorothiazide 12.5 mg tablet
--- NOTE | 2021-12-17 17:38 | PC.NURSE ---
Patient care report called to ILEANA Narvaez. All questions answered at this time.
--- NOTE | 2021-12-17 18:47 | PCCCNOTE ---
Called by [address] [place] [address] for pt dc; daughter wishes to take Mother back to [facility]. I called [facility] [phone] to confirm that they will take pt back. Spoke with nurse and she confirmed that they will accept patient back.
[2021-12-17 22:00] VITALS: BP 120/61; PULSE 67; RESP 16; TEMP 36.6; O2SAT 98
[2021-12-18 06:27] LABS: Basophils Percent Auto 0.7 % (0.2-1.2); Eosinophils Percent Auto 0.7 % (0-4.4); Hematocrit 39.6 % (37.0-47.0); Immature Granulocyte Absolute 0.02 K/mm3 (0.00-0.031); Immature Granulocyte Percent A 0.3 % (0-0.5); Lymphocytes Absolute Auto 1.94 K/mm3 (0.9-3.2); Lymphocytes Percent Auto 32.8 % (18.3-44.2); Mean Corpuscular HGB Conc 32.8 g/dl (32-36); Mean Corpuscular Hemoglobin 33.1 pg (26-34); Mean Corpuscular Volume 100.8 fl (80-100); Mean Platelet Volume 11.2 fl (7.4-10.4); Monocytes Absolute Auto 0.7 K/mm3 (0.1-0.6); Monocytes Percent Auto 11.2 % (2.6-8.5); Neutrophils Absolute Auto 3.2 K/mm3 (1.3-6.7); Neutrophils Percent Auto 54.3 % (45.5-73.1); Platelet Count Result 187 k/mm3 (150-375); Red Blood Count 3.93 M/mm3 (4.2-5.4); White Blood Count 5.9 K/mm3 (4.5-10.0)
[2021-12-18 06:37] LABS: Anion Gap 8 mmol/L (8-16); Blood Urea Nitrogen 20 mg/dL (7-17); Calcium 8.7 mg/dL (8.4-10.2); Carbon Dioxide 27 mmol/L (22-30); Chloride 101 mmol/L (98-107); Estimated Glomerular Filt Rate > 60; Glucose 70 mg/dL (65-110); Magnesium 2.2 mg/dL (1.6-2.3); Potassium 3.7 mmol/L (3.4-5.0); Sodium 136 mmol/L (137-145)
[2021-12-18 09:01] VITALS: O2SAT 92
[2021-12-18 09:59] LABS: Free T4 Free Thyroxine Reflex 1.71 ng/dL (0.78-2.19)
[2021-12-18 11:18] LABS: Total Triiodothyronine (T3) 1.31 NG/ML (0.97-1.69)
--- NOTE | 2021-12-18 11:25 | PM.DS ---
DS: Admitting Diagnosis Discharge Date 12/18/2021 Admitting Diagnosis recurrent ground level falls DS: Discharge Diagnosis Discharge Diagnosis (1) Recurrent falls: Code(s): R29.6 - Repeated falls Status: Acute Assessment and Plan: - High Fall Risk - Care Coordination consult appreciated. - CT of brain, C-spine, T-spine, L-spine all negative for any acute findings and XR of abdomen and pelvis negative as well. - Depakote level is subtherapeutic despite increased dosage recently. - Concern for Seroquel and Depakote contributing to patient's recent falls/UTI - Pt. needs more intensive supervision. (2) Urinary tract infection: Code(s): N39.0 - Urinary tract infection, site not specified Status: Acute Assessment and Plan: - Continue Cefuroxime. This is day #2 of abx treatment. - Urine culture from yesterday pending still. One from day before grew out E.coli. Cefuroxime appropriate treatment. (3) Dementia: Code(s): F03.90 - Unspecified dementia without behavioral disturbance Status: Acute Assessment and Plan: - Attempt to re-orient. - Provide for safety in room with bed alarm and chair alarm. - Fall precautions. - Place in [place]. (4) Hyperlipidemia: Code(s): E78.5 - Hyperlipidemia, unspecified Status: Acute Assessment and Plan: - Continue home medications when they have been verified. (5) Essential hypertension: Code(s): I10 - Essential (primary) hypertension Status: Acute Assessment and Plan: - Monitor and continue home medications when they have been verified. (6) Acquired hypothyroidism: Code(s): E03.9 - Hypothyroidism, unspecified Status: Acute Assessment and Plan: - Continue home medications when verified. - Check TSH. Plan At the time of my admissions patient's home medications had yet to be verified by the accepting RN. I do appreciate the following hospitalist to ensure that medication reconciliation is completed. DS: Summary Hospital Course Reason for hospitalization: Recurrent GLF's Narrative: This 81 year old female patient with significant PMH of hypothyroidism, Anxiety, CAD, Dementia, HTN, HLD, macular degeneration and repeated Ground level falls who resides at [facility] for the past two years presents to the ER via EMS for the third time in three days. She had sustained a GLF on the first ER evaluation and was found to be without acute injury, yesterday she was evaluated a second time for AMS and was found to have a UTI. She was started on Cefuroxime, today being day #2 of that abx and then today she sustained a GLF again at the senior care, hitting her head, without any LOC. She was brought here to the ER for evaluation. Imaging here in ED shows chronic findings only and no acute findings on CT of head, C-spine, thoracic or lumbar spine and there were also no acute findings on imaging of abdomen and pelvis. Her labs are all unremarkable including her CBC, CMP, Troponin and Lipase. The ER physician spoke to the PCP at the [facility] where the patient resides and was advised that the pt. had a recent right clavicle fracture that she refused to wear the sling for. In addition, the pt's depakote dosage increased from 125 mg to 250 mg and her Seroquel did as well. Her Depakote level here was subtherapeutic. Pt. required Haldol 5 mg to calm her upon arrival. She is a very high fall risk and the senior care did not know that they could provide her with adequate care anymore. She is being admitted to hospitalist service at this time for further monitoring and for placement. Urine culture from 12/15/21 has resulted and is growing E.coli, sensitive to Cefuroxime that she is taking. Repeat urine culture from yesterday is still pending. We will continue to dose her Cefuroxime here in hospital during this admission and will consult care coordination. The pt. is confused. She is alert and oriented to self only de
== END 2021-12-18 13:45 ==
LOC: ANHED 15:30 → ANH3MEDSUR 17:40
PROVIDERS: Nurse Practitioner Adult Health; Admitting Provider Student in an Organized Health Care Education/Training Program; Emergency Provider Emergency Medicine; PCP Internal Medicine; Visit Provider Family Medicine
DX: N39.0 Urinary tract infection, site not specified (principal); R29.6 Repeated falls; S09.90XA Unspecified injury of head, initial encounter; E03.9 Hypothyroidism, unspecified; F41.9 Anxiety disorder, unspecified; H34.8190 Central retinal vein occlusion, unspecified eye, with macular edema; I25.10 Atherosclerotic heart disease of native coronary artery without angina pectoris; F03.90 Unspecified dementia, unspecified severity, without behavioral disturbance, psychotic disturbance, mood disturbance, and anxiety; I10 Essential (primary) hypertension; E78.5 Hyperlipidemia, unspecified; Z95.1 Presence of aortocoronary bypass graft; W18.39XA Other fall on same level, initial encounter; Z91.81 History of falling; Z79.82 Long term (current) use of aspirin; Z20.822 Contact with and (suspected) exposure to COVID-19
CPT/HCPCS: 36415; 70450; 72072; 72100; 72125; 72170; 74018; 80048; 80053; 80164; 83690; 83735; 84439; 84443; 84480; 84484; 85025; 93005; 96360; 96361; 96372; 99285; C9803; G0378; J1630; J7030; U0003; U0005